=== PATIENT | male | born 1980 | race Caucasian/White ===

== ENCOUNTER 2017-08-05 05:21 | Emergency (ER) | payer SELFPAY ==
[2017-08-05] MEDS ORDERED: ONDANSETRON HCL INJ/PF 4 MG/2 ML SDV IV ONE (05:29)
[2017-08-05] MEDS ORDERED: MORPHINE SULFATE 10 MG/ML INJ IV PRN (05:29)
[2017-08-05] MEDS ORDERED: KETOROLAC TROMETHAMINE INJ/PF 30 MG/1 ML SDV IV ONE ×2 (05:29→05:41)
[2017-08-05] MEDS ORDERED: NORMAL SALINE 1000 ML 1,000 ML IV ONE (05:41)
--- NOTE | 2017-08-05 05:42 | ER Document Report ---
ED Medical Screen (RME) - General Chief Complaint: Possible Kidney Stone Stated Complaint: POSSIBLE KIDNEY STONES Notes: 37-year-old male, chief complaint of worsening right flank pain radiating around to his abdomen, states he has been vomiting, symptoms started 3 days ago but are worsening. Has a history of kidney stones, had one surgically removed in the past. Denies fevers. TRAVEL OUTSIDE OF THE [place] IN LAST 30 DAYS: No - Related Data Allergies/Adverse Reactions: oxycodone HCl [From OxyContin] Allergy (Verified 05/05/13 06:41) Past Medical History Renal/ Medical History: Reports: Hx Kidney Stones. Denies: Hx Peritoneal Dialysis Past Surgical History: Reports: Hx Orthopedic Surgery - right knee repair - Immunizations Hx Diphtheria, Pertussis, Tetanus Vaccination: Yes Physical Exam - Vital signs Vitals: Temp Pulse Resp BP Pulse Ox 97.5 F 90 24 H 130/113 H 99 08/05/17 05:26 08/05/17 05:26 08/05/17 05:26 08/05/17 05:26 08/05/17 05:26 - General General appearance: Anxious In distress: Moderate - Abdominal Inspection: Normal Tenderness: Nontender Course - Vital Signs Vital signs: Temp Pulse Resp BP Pulse Ox 97.5 F 90 24 H 130/113 H 99 08/05/17 05:26 08/05/17 05:26 08/05/17 05:26 08/05/17 05:26 08/05/17 05:26
[2017-08-05] MEDS ORDERED: MORPHINE SULFATE 10 MG/ML INJ IV ONE (06:01)
[2017-08-05 06:04] LABS: ABSOLUTE BASOPHILS # (AUTO) 0.1 10^3/uL (0.0-0.2); ABSOLUTE EOSINOPHILS # (AUTO) 0.2 10^3/uL (0.0-0.6); ABSOLUTE LYMPHOCYTES (AUTO) 4.1 10^3/uL (0.5-4.7); ABSOLUTE NEUT (AUTO) 6.5 10^3/uL (1.7-8.2); EOSINOPHILS % (AUTO) 1.5 % (0-6); HEMOGLOBIN 16.9 g/dL (13.5-17.0); HGB HCT DIFFERENCE 1.7; LYMPHOCYTES % (AUTO) 34.3 % (13-45); MEAN CORPUSCULAR HEMOGLOBIN 32.2 pg (27.0-33.4); MEAN CORPUSCULAR HGB CONC 34.6 g/dL (32.0-36.0); MEAN CORPUSCULAR VOLUME 93 fl (80-97); MONOCYTES % (AUTO) 8.3 % (3-13); RED BLOOD COUNT 5.25 10^6/uL (4.35-5.55); RED CELL DISTRIBUTION WIDTH 13.2 % (11.5-14.0); SEGMENTED NEUTROPHILS % (AUTO) 54.9 % (42-78); WHITE BLOOD COUNT 11.9 10^3/uL (4.0-10.5)
--- NOTE | 2017-08-05 06:19 | RADIOLOGY REPORT (SQ) ---
EXAM DESCRIPTION: CT LTD RENAL STONE PROTOCOL ON COMPLETED DATE/TIME: 08/05/2017 6:01 am REASON FOR STUDY: right flank pain, vomiting COMPARISON: None. TECHNIQUE: CT scan of the abdomen and pelvis performed without intravenous or oral contrast. Images reviewed with lung, soft tissue, and bone windows. Reconstructed coronal and sagittal MPR images revi ewed. All images stored on PACS. All CT scanners at this facility use dose modulation, iterative reconstruction, and/or weight based d osing when appropriate to reduce radiation dose to as low as reasonably achievable (ALARA). [facility]: Dose Right [facility]: CareDose [facility]: Dose Right [facility]: Teradose 4D [facility]: [employer] RADIATION DOSE: Up-to-date CT equipment and radiation dose reduction techniques were employed. CTDIv ol: 19.2 mGy. DLP: 1222 mGy-cm.mGy. LIMITATIONS: None. FINDINGS: LOWER CHEST: Subsegmental atelectasis at the lingula. 5 mm pleural-based nodule at the ri ght middle lobe (image 3/115). No pleural effusion. NON-CONTRASTED LIVER, SPLEEN, ADRENALS: Evaluation limited by lack of IV contrast. No identified sign ificant masses. PANCREAS: No peripancreatic inflammatory changes. GALLBLADDER: No identified stones by CT criteria. No inflammatory changes to suggest cholecystitis. RIGHT KIDNEY AND URETER: No significant calcifications. No hydronephrosis or hydroureter. LEFT KIDNEY AND URETER: Nonobstructing 6 mm (431 Hounsfield units) calculus at the superior pole of t he left kidney. No hydronephrosis or hydroureter. AORTA AND RETROPERITONEUM: No abdominal aortic aneurysm. No retroperitoneal masses or adenopathy. BOWEL AND PERITONEAL CAVITY: No dilated bowel loops or inflammatory changes. No free fluid. APPENDIX: Normal. PELVIS, BLADDER, AND ABDOMINAL WALL:The urinary bladder is decompressed. No pelvic mass. No free fl uid. Small fat containing umbilical hernia. BONES: Degenerative disc disease at L4-L5 with moderate right-sided neuroforaminal stenosis. IMPRESSION: Nonobstructing left nephrolithiasis. No hydronephrosis. No acute findings in the abdom en or pelvis on unenhanced CT. Degenerative disc disease at L4-L5 with moderate right-sided neuroforaminal stenosis. 5 mm nodule in the right middle lobe. Followup CT thorax as per patient's risk factors. COMMENT: FLEISCHNER CRITERIA FOR FOLLOW-UP OF PULMONARY NODULES Incidentally detected new nodules in persons 35 or older. HIGH RISK: History of smoking or other known risk factors. <6mm single solid nodule: LOW RISK: no routine followup. HIGH RISK: optional CT 12 mo. Quality ID # [id number]: Final reports with documentation of one or more dose reduction techniques (e.g., Au tomated exposure control, adjustment of the mA and/or kV according to patient size, use of iterative reconstruction technique) TECHNICAL DOCUMENTATION: JOB ID: [id number] 2010 [employer]- All Rights Reserved
[2017-08-05] MEDS ORDERED: PROMETHAZINE HCL INJ 25 MG/1 ML VIAL IV ONE (06:20)
[2017-08-05] MEDS ORDERED: HYDROMORPHONE HCL INJ/PF 2 MG/ML AMPULE IV ONE (06:20)
[2017-08-05 06:21] LABS: ALANINE AMINOTRANSFERASE 53 U/L (21-72); ALBUMIN 4.5 g/dL (3.5-5.0); ALKALINE PHOSPHATASE 76 U/L (38-126); ANION GAP 14 (5-19); ASPARTATE AMINO TRANSFERASE 33 U/L (17-59); BILIRUBIN,DIRECT 0.4 mg/dL (0.0-0.4); BILIRUBIN,TOTAL 0.6 mg/dL (0.2-1.3); BLOOD UREA NITROGEN 18 mg/dL (7-20); CALCIUM 9.9 mg/dL (8.4-10.2); CARBON DIOXIDE 25 mmol/L (22-30); CHLORIDE 108 mmol/L (98-107); CREATININE RESULT 1.14 mg/dL (0.52-1.25); GLUCOSE 116 mg/dL (75-110); POTASSIUM 5.1 mmol/L (3.6-5.0); SODIUM 146.5 mmol/L (137-145); TOTAL PROTEIN 7.6 g/dL (6.3-8.2)
--- NOTE | 2017-08-05 06:49 | ER Document Report ---
ED General - General Chief Complaint: Possible Kidney Stone Stated Complaint: POSSIBLE KIDNEY STONES Time Seen by Provider: 08/05/17 05:42 Mode of Arrival: Ambulatory Information source: Patient Notes: 37-year-old male with 3 previous kidney stones presents with complaints of right flank pain. Patient denies any fevers or chills. Patient admits to nausea vomiting patient states this feels like his previous kidney stone started 2-3 days ago TRAVEL OUTSIDE OF THE [place] IN LAST 30 DAYS: No - HPI Onset: Other Onset/Duration: Persistent Quality of pain: Sharp Severity: Moderate Pain Level: 3 Associated symptoms: Nausea, Vomiting, Other Exacerbated by: Denies Relieved by: Denies Similar symptoms previously: Yes Recently seen / treated by doctor: Yes - Related Data Allergies/Adverse Reactions: oxycodone HCl [From OxyContin] Allergy (Verified 05/05/13 06:41) Past Medical History - Social History Smoking Status: Current Every Day Smoker Cigarette use (# per day): Yes Chew tobacco use (# tins/day): No Smoking Education Provided: No Family History: Reviewed & Not Pertinent Patient has suicidal ideation: No Patient has homicidal ideation: No Renal/ Medical History: Reports: Hx Kidney Stones. Denies: Hx Peritoneal Dialysis Past Surgical History: Reports: Hx Orthopedic Surgery - right knee repair - Immunizations Hx Diphtheria, Pertussis, Tetanus Vaccination: Yes Review of Systems - Review of Systems Notes: REVIEW OF SYSTEMS: CONSTITUTIONAL : Denies fever, chills, or sweats. Denies recent illness. EENT: Denies eye, ear, throat, or mouth pain or symptoms. Denies nasal or sinus congestion or discharge. Denies throat, tongue, or mouth swelling or difficulty swallowing. CARDIOVASCULAR: Denies chest pain. Denies palpitations or racing or irregular heart beat. Denies ankle edema. RESPIRATORY: Denies cough, cold, or chest congestion. Denies shortness of breath, difficulty breathing, or wheezing. GASTROINTESTINAL: Admits to flank pain nausea vomiting GENITOURINARY: Admits to difficulty urinating MUSCULOSKELETAL: Denies back or neck pain or stiffness. Denies joint pain or swelling. SKIN: Denies rash, lesions or sores. HEMATOLOGIC : Denies easy bruising or bleeding. LYMPHATIC: Denies swollen, enlarged glands. NEUROLOGICAL: Denies confusion or altered mental status. Denies passing out or loss of consciousness. Denies dizziness or lightheadedness. Denies headache. Denies weakness or paralysis or loss of use of either side. Denies problems with gait or speech. Denies sensory loss, numbness, or tingling. Denies seizures. PSYCHIATRIC: Denies anxiety or stress. Denies depression, suicidal ideation, or homicidal ideation. ALL OTHER SYSTEMS REVIEWED AND NEGATIVE. Dictation was performed using [employer] voice recognition software PHYSICAL EXAMINATION: GENERAL: Well-appearing, well-nourished and in moderate acute distress HEAD: Atraumatic, normocephalic. EYES: Pupils equal round and reactive to light, extraocular movements intact, sclera anicteric, conjunctiva are normal. ENT: Nares patent, oropharynx clear without exudates. Moist mucous membranes. NECK: Normal range of motion, supple without lymphadenopathy LUNGS: Breath sounds clear to auscultation bilaterally and equal. No wheezes rales or rhonchi. HEART: Regular rate and rhythm without murmurs ABDOMEN: Soft, right CVA tenderness no abdominal guarding rebound tenderness. Musculoskeletal: Normal range of motion, no pitting or edema. No cyanosis. NEUROLOGICAL: Cranial nerves grossly intact. Normal speech, normal gait. Normal sensory, motor exams PSYCH: Normal mood, normal affect. SKIN: Warm, Dry, normal turgor, no rashes or lesions noted. Physical Exam - Vital signs Vitals: Temp Pulse Resp BP Pulse Ox 97.5 F 90 24 H 130/113 H 99 08/05/17 05:26 08/05/17 05:26 08/05/17 05:26 08/05/17 05:26 08/05/17 05:26 Course - Re-evaluation Re-evalutation: 08/05/17 06:49 Patient was initially given Toradol Zofran which did not improve his vomiting or nausea, he was then given Dilaudid and Phenergan as much more comfortable, urinalysis CT are pending 08/05/17 07:09 ct noted a lung nodule which was reported to the patient, otherwise well appearing, no infection or blood in the urine. Pt will be dc home with close follow up especially regarding the nodule. After performing a Medical Screening Examination, I estimate there is LOW risk for ACUTE APPENDICITIS, BOWEL OBSTRUCTION, ACUTE CHOLECYSTITIS, PERFORATED DIVERTICULITIS, INCARCERATED HERNIA, PANCREATITIS, TESTICULAR TORSION or PERFORATED ULCER, thus I consider the discharge disposition reasonable. Also, there is no evidence or peritonitis, sepsis, or toxicity. I have reevaluated this patient multiple times and no significant life threatening changes are noted. The patient and I have discussed the diagnosis and risks, and we agree with discharging home with close follow-up with the understanding that symptoms and presentations can change. We also discussed returning to the Emergency Department immediately if new or worsening symptoms occur. We have discussed the symptoms which are most concerning (e.g., bloody stool, fever, changing or worsening pain, intractable vomiting - standard verbal up date) that necessitate immediate return. - Vital Signs Vital signs: Temp Pulse Resp BP Pulse Ox 97.5 F 70 18 131/76 H 98 08/05/17 05:26 08/05/17 06:51 08/05/17 06:51 08/05/17 06:51 08/05/17 06:51 - Laboratory Result Diagrams: 08/05/17 05:46 08/05/17 05:46 Laboratory results interpreted by me: 08/05/17 08/05/17 05:46 05:46 WBC 11.9 H Sodium 146.5 H Potassium 5.1 H Chloride 108 H Glucose 116 H - Diagnostic Test Radiology reviewed: Image reviewed, Reports reviewed Discharge - Discharge Clinical Impression: Flank pain, Lung nodule < 6cm on CT Condition: Stable Disposition: HOME, SELF-CARE Instructions: Abdominal Pain ([facility]) Additional Instructions: You must follow up with your pcp regarding the finding of the CT Follow up with your physician tomorrow for further care or return to the ED IMMEDIATELY if symptoms worsen or new concerns occur. If you cannot afford to follow up with your primary care physician a list of low cost clinics have been provided at the end of your discharge papers as well. Prescriptions: Promethazine HCl [Phenergan 25 mg Tablet] 25 - 50 mg PO Q4HP PRN #12 tablet PRN Reason: Hydrocodone Bit/Acetaminophen [Hydrocodon-Acetaminophen 5-325] 1 each PO Q6 #14 tablet
[2017-08-05 06:50] LABS: APPEARANCE,URINE CLEAR; BILIRUBIN,URINE NEGATIVE (NEGATIVE); GLUCOSE, URINE NEGATIVE (NEGATIVE); KETONES,URINE NEGATIVE (NEGATIVE); LEUKOCYTE ESTERASE,URINE NEGATIVE (NEGATIVE); NITRITE,URINE NEGATIVE (NEGATIVE); PROTEIN,URINE NEGATIVE (NEGATIVE); URINE SPECIFIC GRAVITY 1.013; UROBILINOGEN,URINE NEGATIVE mg/dL (<2.0)
[2017-08-05 06:51] VITALS: BP 131/76
== END 2017-08-05 07:23 | disposition home or self-care (01) ==
LOC: ER 05:21
DX: R10.9 Unspecified abdominal pain (principal); R91.1 Solitary pulmonary nodule; R11.2 Nausea with vomiting, unspecified; F17.210 Nicotine dependence, cigarettes, uncomplicated; Z87.442 Personal history of urinary calculi; Z88.5 Allergy status to narcotic agent
CPT/HCPCS: 99284; 96361; 51701; 96374; 96375; 36415; 85025; 80053; 81001; 76380; J1885; J2270; J1170; J2550; J2405; J7030

== ENCOUNTER 2017-10-05 12:20 | Emergency (ER) | payer SELFPAY ==
[2017-10-05] MEDS ORDERED: KETOROLAC TROMETHAMINE INJ/PF 30 MG/1 ML SDV IV ONE (12:39)
--- NOTE | 2017-10-05 12:39 | ER Document Report ---
ED Medical Screen (RME) - General Chief Complaint: Wound Infection Stated Complaint: ARM PAIN Time Seen by Provider: 10/05/17 12:38 Notes: Patient has swollen tender erythematous left arm from an infected tattoo. TRAVEL OUTSIDE OF THE [place] IN LAST 30 DAYS: No - Related Data Allergies/Adverse Reactions: oxycodone HCl [From OxyContin] Allergy (Verified 10/05/17 12:20) Home Medications: Current Home Medications No Home Medications 10/05/17 [History] Past Medical History - Social History Chew tobacco use (# tins/day): No Frequency of alcohol use: Rare Drug Abuse: None Renal/ Medical History: Reports: Hx Kidney Stones. Denies: Hx Peritoneal Dialysis Past Surgical History: Reports: Hx Orthopedic Surgery - right knee repair - Immunizations Hx Diphtheria, Pertussis, Tetanus Vaccination: Yes Physical Exam - Vital signs Vitals: Temp Pulse Resp BP Pulse Ox 97.5 F 66 16 152/96 H 99 10/05/17 12:25 10/05/17 12:25 10/05/17 12:25 10/05/17 12:25 10/05/17 12:25 Course - Vital Signs Vital signs: Temp Pulse Resp BP Pulse Ox 97.5 F 66 16 152/96 H 99 10/05/17 12:25 10/05/17 12:25 10/05/17 12:25 10/05/17 12:25 10/05/17 12:25
[2017-10-05 13:14] LABS: ABSOLUTE BASOPHILS # (AUTO) 0.1 10^3/uL (0.0-0.2); ABSOLUTE EOSINOPHILS # (AUTO) 0.1 10^3/uL (0.0-0.6); ABSOLUTE LYMPHOCYTES (AUTO) 3.6 10^3/uL (0.5-4.7); ABSOLUTE MONOCYTES (AUTO) 0.7 10^3/uL (0.1-1.4); ABSOLUTE NEUT (AUTO) 6.5 10^3/uL (1.7-8.2); BASOPHILS % (AUTO) 0.9 % (0-2); EOSINOPHILS % (AUTO) 1.1 % (0-6); HEMATOCRIT 49.7 % (37.9-51.0); HEMOGLOBIN 17.2 g/dL (13.5-17.0); HGB HCT DIFFERENCE 1.9; LYMPHOCYTES % (AUTO) 32.5 % (13-45); MEAN CORPUSCULAR HEMOGLOBIN 32.2 pg (27.0-33.4); MEAN CORPUSCULAR HGB CONC 34.6 g/dL (32.0-36.0); MEAN CORPUSCULAR VOLUME 93 fl (80-97); MONOCYTES % (AUTO) 6.8 % (3-13); RED BLOOD COUNT 5.34 10^6/uL (4.35-5.55); RED CELL DISTRIBUTION WIDTH 13.2 % (11.5-14.0); SEGMENTED NEUTROPHILS % (AUTO) 58.7 % (42-78)
[2017-10-05] MEDS ORDERED: CLINDAMYCIN 300 MG/D5W RTU 300 MG/50 ML RTUPB IV ONE (13:29)
[2017-10-05] MEDS ORDERED: HYDROMORPHONE HCL INJ/PF 2 MG/ML AMPULE IV ONE (13:29)
--- NOTE | 2017-10-05 13:31 | ER Document Report ---
ED General - General Chief Complaint: Wound Infection Stated Complaint: ARM PAIN Time Seen by Provider: 10/05/17 12:38 Mode of Arrival: Ambulatory Information source: Patient Notes: 37 yr old male presents with complaints of left forearm infection of tattoo of 1 week duration. pt notes tetanus is up to date, has no concerns of hep B, pt dneies any fevers, admits to pain of the tattoo TRAVEL OUTSIDE OF THE [place] IN LAST 30 DAYS: No - HPI Onset: Last week Onset/Duration: Worse Quality of pain: Burning, Sharp Severity: Mild Pain Level: 2 Associated symptoms: Other Exacerbated by: Denies Relieved by: Denies Similar symptoms previously: No Recently seen / treated by doctor: No - Related Data Allergies/Adverse Reactions: oxycodone HCl [From OxyContin] Allergy (Verified 10/05/17 12:20) Past Medical History - Social History Smoking Status: Current Every Day Smoker Cigarette use (# per day): Yes Chew tobacco use (# tins/day): No Smoking Education Provided: No Frequency of alcohol use: Rare Drug Abuse: None Family History: Reviewed & Not Pertinent Patient has suicidal ideation: No Patient has homicidal ideation: No Renal/ Medical History: Reports: Hx Kidney Stones. Denies: Hx Peritoneal Dialysis Past Surgical History: Reports: Hx Orthopedic Surgery - right knee repair - Immunizations Hx Diphtheria, Pertussis, Tetanus Vaccination: Yes Review of Systems - Review of Systems Notes: REVIEW OF SYSTEMS: CONSTITUTIONAL : Denies fever, chills, or sweats. Denies recent illness. EENT: Denies eye, ear, throat, or mouth pain or symptoms. Denies nasal or sinus congestion or discharge. Denies throat, tongue, or mouth swelling or difficulty swallowing. CARDIOVASCULAR: Denies chest pain. Denies palpitations or racing or irregular heart beat. Denies ankle edema. RESPIRATORY: Denies cough, cold, or chest congestion. Denies shortness of breath, difficulty breathing, or wheezing. GASTROINTESTINAL: Denies abdominal pain or distention. Denies nausea, vomiting , or diarrhea. Denies blood in vomitus, stools, or per rectum. Denies black, tarry stools. Denies constipation. GENITOURINARY: Denies difficulty urinating, painful urination, burning, frequency, blood in urine, or discharge. MUSCULOSKELETAL: Denies back or neck pain or stiffness. Denies joint pain or swelling. SKIN: Admits to rash of left forearm HEMATOLOGIC : Denies easy bruising or bleeding. LYMPHATIC: Denies swollen, enlarged glands. NEUROLOGICAL: Denies confusion or altered mental status. Denies passing out or loss of consciousness. Denies dizziness or lightheadedness. Denies headache. Denies weakness or paralysis or loss of use of either side. Denies problems with gait or speech. Denies sensory loss, numbness, or tingling. Denies seizures. PSYCHIATRIC: Denies anxiety or stress. Denies depression, suicidal ideation, or homicidal ideation. ALL OTHER SYSTEMS REVIEWED AND NEGATIVE. Dictation was performed using [employer] voice recognition software PHYSICAL EXAMINATION: GENERAL: Well-appearing, well-nourished and in no acute distress. HEAD: Atraumatic, normocephalic. EYES: Pupils equal round and reactive to light, extraocular movements intact, sclera anicteric, conjunctiva are normal. ENT: Nares patent, oropharynx clear without exudates. Moist mucous membranes. NECK: Normal range of motion, supple without lymphadenopathy LUNGS: Breath sounds clear to auscultation bilaterally and equal. No wheezes rales or rhonchi. HEART: Regular rate and rhythm without murmurs ABDOMEN: Soft, nontender, nondistended abdomen. No guarding, no rebound. No masses appreciated. Musculoskeletal: Normal range of motion, no pitting or edema. No cyanosis. NEUROLOGICAL: Cranial nerves grossly intact. Normal speech, normal gait. Normal sensory, motor exams PSYCH: Normal mood, normal affect. SKIN: Cellulitic component of the left forearm with scarring in the shape of a female body Physical Exam - Vital signs Vitals: Temp Pulse Resp BP Pulse Ox 97.5 F 66 16 152/96 H 99 10/05/17 12:25 10/05/17 12:25 10/05/17 12:25 10/05/17 12:25 10/05/17 12:25 Course - Re-evaluation Re-evalutation: 10/05/17 17:08 Patient's tattoo is obviously infected, IV antibiotics have been started he is otherwise well-appearing in no distress afebrile white count is 11.0, he was given first dose of IV antibiotics here, and will be discharged home on oral antibiotics with very strict return precautions After performing a Medical Screening Examination, I estimate there is LOW risk for OPEN FRACTURE, COMPARTMENT SYNDROME, TENDON RUPTURE, ACUTE NEUROVASCULAR INJURY, or RETAINED FOREIGN BODY, thus I consider the discharge disposition reasonable. Also, there is no evidence or peritonitis, sepsis, or toxicity. I have reevaluated this patient multiple times and no significant life threatening changes are noted. The patient and I have discussed the diagnosis and risks, and we agree with discharging home with close follow-up with the understanding that symptoms and presentations can change. We also discussed returning to the Emergency Department immediately if new or worsening symptoms occur. We have discussed the symptoms which are most concerning (e.g., changing or worsening pain, fever, numbness, weakness, cool or painful digits) that necessitate immediate return. - Vital Signs Vital signs: Temp Pulse Resp BP Pulse Ox 97.8 F 57 L 20 127/87 H 96 10/05/17 14:49 10/05/17 14:49 10/05/17 14:49 10/05/17 14:49 10/05/17 14:49 - Laboratory Result Diagrams: 10/05/17 13:00 10/05/17 13:00 Laboratory results interpreted by me: 10/05/17 10/05/17 13:00 13:00 WBC 11.0 H Hgb 17.2 H Sodium 146.3 H Calcium 10.6 H Discharge - Discharge Clinical Impression: Infected tattoo Cellulitis Qualifiers: Site of cellulitis: extremity Site of cellulitis of extremity: upper extremity Laterality: left Qualified Code(s): L03.114 - Cellulitis of left upper limb Condition: Stable Disposition: HOME, SELF-CARE Instructions: Wound Infection ([facility]) Additional Instructions: Follow up with your physician tomorrow for further care or return to the ED IMMEDIATELY if symptoms worsen or new concerns occur. If you cannot afford to follow up with your primary care physician a list of low cost clinics have been provided at the end of your discharge papers as well. Prescriptions: Clindamycin HCl 300 mg PO Q6 #40 capsule Oxycodone HCl/Acetaminophen [Percocet 5-325 mg Tablet] 1 tab PO Q6 #15 tab
[2017-10-05 13:33] LABS: ALANINE AMINOTRANSFERASE 43 U/L (21-72); ALBUMIN 4.6 g/dL (3.5-5.0); ALKALINE PHOSPHATASE 97 U/L (38-126); ANION GAP 13 (5-19); ASPARTATE AMINO TRANSFERASE 23 U/L (17-59); BILIRUBIN,DIRECT 0.2 mg/dL (0.0-0.4); BILIRUBIN,TOTAL 0.4 mg/dL (0.2-1.3); BLOOD UREA NITROGEN 15 mg/dL (7-20); CALCIUM 10.6 mg/dL (8.4-10.2); CARBON DIOXIDE 27 mmol/L (22-30); CHLORIDE 106 mmol/L (98-107); CREATININE RESULT 1.24 mg/dL (0.52-1.25); GLUCOSE 88 mg/dL (75-110); POTASSIUM 4.5 mmol/L (3.6-5.0); SODIUM 146.3 mmol/L (137-145); TOTAL PROTEIN 7.8 g/dL (6.3-8.2)
[2017-10-05 15:04] VITALS: BP 127/87
== END 2017-10-05 14:55 | disposition home or self-care (01) ==
LOC: ER 12:20
DX: L03.114 Cellulitis of left upper limb (principal); F17.210 Nicotine dependence, cigarettes, uncomplicated; Z88.5 Allergy status to narcotic agent
CPT/HCPCS: 99283; 96375; 96365; 36415; 87040; 85025; 80053; J3490; J1885; J1170

== ENCOUNTER 2018-02-25 20:00 | Inpatient (IN) | payer SELFPAY ==
[2018-02-25] MEDS ORDERED: FENTANYL CITRATE INJ/PF 100 MCG/2 ML AMPUL IV ONE (20:19)
[2018-02-25] MEDS ORDERED: ONDANSETRON HCL INJ/PF 4 MG/2 ML SDV IV ONE (20:19)
[2018-02-25] MEDS ORDERED: RINGERS SOLUTION,LACTATED 1,000 ML IV ONE ×2 (20:20→23:37)
--- NOTE | 2018-02-25 20:20 | ER Document Report ---
ED Medical Screen (RME) - General Chief Complaint: Nausea/Vomiting/Diarrhea Stated Complaint: VOMITING Time Seen by Provider: 02/25/18 20:16 Notes: RAPID MEDICAL EVALUATION DISCLOSURE I have seen this patient as part of a Rapid Medical Evaluation and, if applicable, placed any initially appropriate orders. The patient will be seen and fully evaluated, including a full history and physical exam, by a provider ( in Main ED or Fast Track) when a room becomes available. 37-year-old male here with complaints of nausea vomiting diarrhea abdominal pain and lightheadedness. Symptoms started this morning with nausea diarrhea followed by left lower quadrant abdominal pain lightheadedness and vomiting. He reports the pain was excruciating earlier in the day but has down some though is still a nagging pain. Has been unable to keep anything down. Try taking Tylenol but was unable to keep it down. Denies taking any regularly scheduled medications or pesticide exposure. No prior history of colitis diverticulitis pancreatitis. EXAM Clear to auscultation bilaterally Tachycardic Moderate left lower greater than upper quadrant tenderness Mild epigastric tenderness NOTE PO Tylenol not given to maintain n.p.o. status Patient refusing Tylenol suppository TRAVEL OUTSIDE OF THE [place] IN LAST 30 DAYS: No - Related Data Allergies/Adverse Reactions: oxycodone HCl [From OxyContin] Allergy (Verified 02/25/18 20:01) Past Medical History - Social History Chew tobacco use (# tins/day): No Frequency of alcohol use: None Drug Abuse: None Renal/ Medical History: Reports: Hx Kidney Stones. Denies: Hx Peritoneal Dialysis Past Surgical History: Reports: Hx Orthopedic Surgery - Rt knee, Rt ankle, Rt wrist - Immunizations Hx Diphtheria, Pertussis, Tetanus Vaccination: Yes Physical Exam - Vital signs Vitals: Temp Pulse Resp BP Pulse Ox 102.4 F H 113 H 20 135/81 H 96 02/25/18 20:05 02/25/18 20:05 02/25/18 20:05 02/25/18 20:05 02/25/18 20:05 Course - Vital Signs Vital signs: Temp Pulse Resp BP Pulse Ox 102.4 F H 113 H 20 135/81 H 96 02/25/18 20:05 02/25/18 20:05 02/25/18 20:05 02/25/18 20:05 02/25/18 20:05
[2018-02-25] MEDS ORDERED: KETOROLAC TROMETHAMINE INJ/PF 30 MG/1 ML SDV IV ONE (21:01)
[2018-02-25] MEDS ORDERED: ACETAMINOPHEN 325 MG TABLET PO ONE (21:01)
--- NOTE | 2018-02-25 21:04 | ER Document Report ---
ED General - General Chief Complaint: Nausea/Vomiting/Diarrhea Stated Complaint: VOMITING Time Seen by Provider: 02/25/18 20:16 Notes: Patient is a 37-year-old male with a past medical history of morbid obesity who presents with complaints of abdominal pain, nausea, vomiting and diarrhea. Patient reports that the symptoms started earlier this morning have become progressively worse since onset. He notes a constant, throbbing, burning pain to the left side of his abdomen most focal to the left lower abdomen. He states touching the area or moving worsens the pain he has not training to improve the pain. Past. He has not seen his general doctor regarding today's concerns. Has had a fever at home. Known sick contacts. He has not been able to tolerate oral intake since onset of his symptoms. He has no prior history of abdominal surgeries. TRAVEL OUTSIDE OF THE [place] IN LAST 30 DAYS: No - Related Data Allergies/Adverse Reactions: oxycodone HCl [From OxyContin] Allergy (Verified 02/25/18 20:01) Past Medical History - General Information source: Patient - Social History Smoking Status: Current Every Day Smoker Chew tobacco use (# tins/day): No Frequency of alcohol use: None Drug Abuse: None Lives with: Spouse/Significant other Family History: Reviewed & Not Pertinent Patient has suicidal ideation: No Patient has homicidal ideation: No Renal/ Medical History: Reports: Hx Kidney Stones. Denies: Hx Peritoneal Dialysis Past Surgical History: Reports: Hx Orthopedic Surgery - Rt knee, Rt ankle, Rt wrist - Immunizations Hx Diphtheria, Pertussis, Tetanus Vaccination: Yes Review of Systems - Review of Systems Notes: Constitutional: Positive for fever. HENT: Negative for sore throat. Eyes: Negative for visual changes. Cardiovascular: Negative for chest pain. Respiratory: Negative for shortness of breath. Gastrointestinal: Positive for abdominal pain, vomiting and diarrhea Genitourinary: Negative for dysuria. Musculoskeletal: Negative for back pain. Skin: Negative for rash. Neurological: Negative for headaches, weakness or numbness. 10 point ROS negative except as marked above and in HPI. Physical Exam - Vital signs Vitals: Temp Pulse Resp BP Pulse Ox 102.4 F H 113 H 20 135/81 H 96 02/25/18 20:05 02/25/18 20:05 02/25/18 20:05 02/25/18 20:05 02/25/18 20:05 Interpretation: Tachycardic, Febrile Notes: PHYSICAL EXAMINATION: GENERAL: Appears uncomfortable and somewhat unwell but in no acute distress HEAD: Atraumatic, normocephalic. EYES: Pupils equal round and reactive to light, extraocular movements intact, sclera anicteric, conjunctiva are normal. ENT: nares patent, oropharynx clear without exudates. Moderately dry mucous membranes. NECK: Normal range of motion, supple without lymphadenopathy LUNGS: Breath sounds clear to auscultation bilaterally and equal. No wheezes rales or rhonchi. HEART: Regular tachycardia without murmurs ABDOMEN: Soft, obese abdomen, diffuse tenderness to the left upper, left middle and left lower abdominal quadrants with voluntary guarding but no rebound tenderness. Nontender, normoactive bowel sounds. EXTREMITIES: Normal range of motion, no pitting or edema. No cyanosis. NEUROLOGICAL: No focal neurological deficits. Moves all extremities spontaneously and on command. PSYCH: Moderately anxious SKIN: Warm, Dry, normal turgor, no rashes or lesions noted. Course - Re-evaluation Re-evalutation: 02/25/18 21:03 Patient presents with diarrhea, vomiting and generalized epigastric, left upper quadrant left lower quadrant abdominal tenderness with voluntary guarding. Patient is febrile, tachycardic and somewhat ill in appearance. Primary concern would be an acute diverticulitis, possible recanalized colitis, less likely a necrotizing pancreatitis or pyelonephritis. Will obtain labs, provide IV fluids, antipyretics, antiemetics, and obtain CT imaging abdomen pelvis to further clarify and then reassess the patient. 02/25/18 22:54 Patient continues to have left mid and lower abdominal tenderness although his heart rate has improved as he has defervesced. His CT scan of the abdomen and pelvis is unremarkable without any acute findings. Awaiting urinalysis. However, given that the patient continues to have significant tenderness on palpation of his abdomen with associated fever and a marked leukocytosis I do not believe the patient can be discharged today. If the urinalysis is normal I will discuss this case with the hospitalist and request hospitalization for observation. 02/25/18 23:40 Urinalysis unremarkable. Patient is yet to have diarrhea but we have requested C. difficile, stool culture and assay testing. Will discuss with hospitalist for admission. Will empirically begin antibiotic coverage of ciprofloxacin and Flagyl. - Vital Signs Vital signs: Temp Pulse Resp BP Pulse Ox 100.9 F H 113 H 19 126/81 H 95 02/25/18 21:58 02/25/18 20:05 02/26/18 00:01 02/26/18 00:01 02/26/18 00:01 - Laboratory Result Diagrams: 02/25/18 20:40 02/25/18 20:40 Laboratory results interpreted by me: 02/25/18 02/25/18 20:40 20:40 WBC 22.7 H RBC 5.62 H Hgb 17.8 H Hct 52.2 H Seg Neuts % (Manual) 89 H Band Neutrophils % 1 L Lymphocytes % (Manual) 6 L Abs Neuts (Manual) 20.4 H Glucose 132 H Direct Bilirubin 0.5 H - Diagnostic Test Radiology reviewed: Reports reviewed Discharge - Discharge Clinical Impression: Left lower quadrant abdominal pain of unknown etiology, Vomiting and diarrhea Sepsis Qualifiers: Sepsis type: sepsis due to unspecified organism Qualified Code(s): A41.9 - Sepsis, unspecified organism Condition: Fair Disposition: ADMITTED INPATIENT Admitting Provider: Hospitalist Unit Admitted: Telemetry
[2018-02-25 21:11] LABS: HEMATOCRIT 52.2 % (37.9-51.0); HEMOGLOBIN 17.8 g/dL (13.5-17.0); MEAN CORPUSCULAR HEMOGLOBIN 31.8 pg (27.0-33.4); MEAN CORPUSCULAR HGB CONC 34.2 g/dL (32.0-36.0); MEAN CORPUSCULAR VOLUME 93 fl (80-97); PLATELET COUNT 239 10^3/uL (150-450); RED BLOOD COUNT 5.62 10^6/uL (4.35-5.55); RED CELL DISTRIBUTION WIDTH 13.4 % (11.5-14.0); WHITE BLOOD COUNT 22.7 10^3/uL (4.0-10.5)
[2018-02-25 21:30] LABS: ABSOLUTE LYMPHOCYTES# (MANUAL) 1.4 10^3/uL (0.5-4.7); ABSOLUTE MONOCYTES # (MANUAL) 0.9 10^3/uL (0.1-1.4); ABSOLUTE NEUTROPHILS# (MANUAL) 20.4 10^3/uL (1.7-8.2); BAND NEUTROPHILS % (MANUAL) 1 % (3-5); BASOPHILS % (MANUAL) 0 % (0-2); EOSINOPHILS % (MANUAL) 0 % (0-6); LYMPHOCYTES % (MANUAL) 6 % (13-45); MONOCYTES % (MANUAL) 4 % (3-13); SEGMENTED NEUTROPHILS % (MAN) 89 % (42-78); TOTAL CELLS COUNTED 100
[2018-02-25 21:32] LABS: PLATELET COMMENT ADEQUATE; RBC MORPHOLOGY COMMENT NORMO-CYTIC/CHROMIC; TOXIC GRANULATION SLIGHT
[2018-02-25 21:40] LABS: ALANINE AMINOTRANSFERASE 59 U/L (21-72); ALBUMIN 4.7 g/dL (3.5-5.0); ALKALINE PHOSPHATASE 80 U/L (38-126); ANION GAP 18 (5-19); ASPARTATE AMINO TRANSFERASE 28 U/L (17-59); BILIRUBIN,DIRECT 0.5 mg/dL (0.0-0.4); BILIRUBIN,TOTAL 0.7 mg/dL (0.2-1.3); BLOOD UREA NITROGEN 16 mg/dL (7-20); CALCIUM 9.8 mg/dL (8.4-10.2); CARBON DIOXIDE 24 mmol/L (22-30); CHLORIDE 101 mmol/L (98-107); GLUCOSE 132 mg/dL (75-110); LIPASE 193.8 U/L (23-300); POTASSIUM 4.8 mmol/L (3.6-5.0); SODIUM 143.4 mmol/L (137-145)
--- NOTE | 2018-02-25 22:44 | RADIOLOGY REPORT (SQ) ---
EXAM DESCRIPTION: CT ABD/PELVIS WITH IV ONLY COMPLETED DATE/TIME: 02/25/2018 10:11 pm REASON FOR STUDY: LLQ/LUQ pain fever n/v/d COMPARISON: Noncontrast CT abdomen and pelvis 08/05/2017 TECHNIQUE: CT scan of the abdomen and pelvis performed using helical scanning technique with dynamic intravenous contrast injection. No oral contrast. Images reviewed with lung, soft tissue, and bone windows. Reconstructed coronal and sagittal MPR images reviewed. Delayed images for evaluation of the urinary system also acquired. All images stored on PACS. All CT scanners at this facility use dose modulation, iterative reconstruction, and/or weight based d osing when appropriate to reduce radiation dose to as low as reasonably achievable (ALARA). [facility]: Dose Right [facility]: CareDose [facility]: Dose Right [facility]: Teradose 4D [facility]: [employer] CONTRAST TYPE AND DOSE: 100 mL Isovue 370- low osmolar. RENAL FUNCTION: Creatinine 1.22 RADIATION DOSE: . LIMITATIONS: None. FINDINGS: LOWER CHEST: No significant interval change in the 5 mm pleural-based nodule at the right middle lobe (image 2/35). No consolidation or pleural effusion. LIVER: Diffuse decreased attenuation, most consistent with fatty infiltration. No masses. No dilated ducts. SPLEEN: Normal size. No focal lesions. PANCREAS: No significant calcifications. No adjacent inflammation or peripancreatic fluid collections . Pancreatic duct not dilated. GALLBLADDER: No identified stones by CT criteria. No inflammatory changes to suggest cholecystitis. ADRENAL GLANDS: No significant masses or asymmetry. RIGHT KIDNEY AND URETER: Subcentimeter hypodensity at the superior pole of the right kidney is too sm all to be adequately characterized. No significant calcifications. No hydronephrosis or hydrouret er. LEFT KIDNEY AND URETER: Subcentimeter hypodensity at the superior pole of the left kidney is too smal l to be adequately characterized. Nonobstructing 7 mm renal calculus (459 Hounsfield units). No h ydronephrosis or hydroureter. AORTA AND VESSELS: No abdominal aortic aneurysm. RETROPERITONEUM: No retroperitoneal adenopathy, hemorrhage or masses. BOWEL AND PERITONEAL CAVITY: No dilated bowel loops or inflammatory changes. No free fluid or free ai r. APPENDIX: Normal. PELVIS: No mass. No free fluid. The urinary bladder is partially distended. ABDOMINAL WALL: Small fat containing umbilical hernia. BONES: Degenerative disc disease with vacuum disc phenomenon at L4-L5. IMPRESSION: 1. No acute findings. 2. Nonobstructing left nephrolithiasis. 3. Fatty infiltration of the liver. 4. No significant interval change in the 5 mm pulmonary nodule at the right middle lobe. Followup CT thorax as per patient's risk factors. 5. Degenerative disc disease at L4-L5. COMMENT: FLEISCHNER CRITERIA FOR FOLLOW-UP OF PULMONARY NODULES Incidentally detected new nodules in persons 35 or older. HIGH RISK: History of smoking or other known risk factors. <6mm single solid nodule: LOW RISK: no routine followup. HIGH RISK: optional CT 12 mo. TECHNICAL DOCUMENTATION: JOB ID: [id number] MO-64 Quality ID # [id number]: Final reports with documentation of one or more dose reduction techniques (e.g., Au tomated exposure control, adjustment of the mA and/or kV according to patient size, use of iterative reconstruction technique) 2010 [employer]- All Rights Reserved Reading location - IP/workstation name: [email or web address]
[2018-02-25] MEDS: HYDROMORPHONE HCL INJ/PF 2 MG/ML AMPULE IV PRN (22:59)
[2018-02-25 23:20] LABS: APPEARANCE,URINE CLEAR; BILIRUBIN,URINE NEGATIVE (NEGATIVE); COLOR,URINE YELLOW; GLUCOSE, URINE NEGATIVE (NEGATIVE); KETONES,URINE NEGATIVE (NEGATIVE); LEUKOCYTE ESTERASE,URINE NEGATIVE (NEGATIVE); NITRITE,URINE NEGATIVE (NEGATIVE); PROTEIN,URINE NEGATIVE (NEGATIVE); URINE SPECIFIC GRAVITY 1.038; UROBILINOGEN,URINE NEGATIVE mg/dL (<2.0)
[2018-02-25] MEDS ORDERED: METRONIDAZOLE 500 MG/NS RTU 100 ML IV ONE (23:39)
[2018-02-25] MEDS ORDERED: CIPROFLOXACIN 400 MG/D5W RTU 400 MG/200 ML RTUPB IV SCH (23:45)
[2018-02-25] MEDS ORDERED: NORMAL SALINE 1000 ML 1,000 ML IV SCH (23:45)
[2018-02-25] MEDS ORDERED: MAG HYDROX/AL HYDROX/SIMETH SUSP 30 ML UDCUP PO PRN (23:50)
[2018-02-25] MEDS ORDERED: IPRATROPIUM/ALBUTEROL 0.5-2.5 MG/3 ML AMPUL NEB PRN (23:50)
[2018-02-26] MEDS ORDERED: CIPROFLOXACIN 400 MG/D5W RTU 400 MG/200 ML RTUPB IV ONE (01:00)
[2018-02-26] MEDS: HYDROMORPHONE HCL INJ/PF 2 MG/ML AMPULE IV PRN ×6 (02:14→21:28)
--- NOTE | 2018-02-26 03:56 | PDOC H&P ---
History of Present Illness Admission Date/PCP: 02/25/18 23:58 Patient complains of: Abdominal pain nausea vomiting History of Present Illness: ANNETTE GUERRERO is a 37 year old male with a history of morbid obesity who presents with 12 hours of abdominal pain nausea vomiting and diarrhea 1. Patient denies blood in vomit or diarrhea, no chest pain or shortness of breath. Subjective fever in the emergency room is found to have leukocytosis and left lower quadrant pain otherwise unremarkable workup. He is ordered empiric antibiotics, IV fluid, symptomatic management and referred to the hospitalist for admission. Patient is most comfortable lying flat no further episodes of emesis or diarrhea, he denies previous episode, suspect meals or recent antibiotics. Past Medical History Medical History: None Past Surgical History Past Surgical History: Reports: Orthopedic Surgery - Rt knee, Rt ankle, Rt wrist Social History Information Source: Patient Lives with: Spouse/Significant other Smoking Status: Never Smoker Frequency of Alcohol Use: None Hx Recreational Drug Use: No Drugs: None - Advance Directive Resuscitation Status: Full Code Family History Family History: DM, Hypertension Parental Family History Reviewed: Yes Children Family History Reviewed: Yes Sibling(s) Family History Reviewed.: Yes Medication/Allergy Home Medications: No Home Medications 02/25/18 Allergies/Adverse Reactions: oxycodone HCl [From OxyContin] Allergy (Verified 02/25/18 20:01) Review of Systems Constitutional: ABSENT: chills, fever(s), headache(s), weight gain, weight loss Eyes: ABSENT: visual disturbances Ears: ABSENT: hearing changes Cardiovascular: ABSENT: chest pain, dyspnea on exertion, edema, orthropnea, palpitations Respiratory: ABSENT: cough, hemoptysis Gastrointestinal: ABSENT: abdominal pain, constipation, diarrhea, hematemesis, hematochezia, nausea, vomiting Genitourinary: ABSENT: dysuria, hematuria Musculoskeletal: ABSENT: joint swelling Integumentary: ABSENT: rash, wounds Neurological: ABSENT: abnormal gait, abnormal speech, confusion, dizziness, focal weakness, syncope Psychiatric: ABSENT: anxiety, depression, homidical ideation, suicidal ideation Endocrine: ABSENT: cold intolerance, heat intolerance, polydipsia, polyuria Hematologic/Lymphatic: ABSENT: easy bleeding, easy bruising Physical Exam Vital Signs: Temp Pulse Resp BP Pulse Ox 100.9 F H 113 H 14 115/73 92 02/25/18 21:58 02/25/18 20:05 02/26/18 03:01 02/26/18 03:01 02/26/18 03:01 General appearance: PRESENT: cooperative, mild distress, obese. ABSENT: disheveled Head exam: PRESENT: atraumatic, normocephalic Eye exam: PRESENT: conjunctiva pink, EOMI, PERRLA. ABSENT: scleral icterus Ear exam: PRESENT: normal external ear exam Mouth exam: PRESENT: moist, tongue midline Respiratory exam: PRESENT: clear to auscultation abiola. ABSENT: rales, rhonchi, wheezes Cardiovascular exam: PRESENT: RRR. ABSENT: diastolic murmur, rubs, systolic murmur Pulses: PRESENT: normal dorsalis pedis pul Vascular exam: PRESENT: normal capillary refill GI/Abdominal exam: PRESENT: hypoactive bowel sounds, soft, tenderness. ABSENT: distended, firm, guarding, rigid Rectal exam: PRESENT: deferred Extremities exam: PRESENT: full ROM. ABSENT: calf tenderness, clubbing, pedal edema Neurological exam: PRESENT: alert, awake, oriented to person, oriented to place , oriented to time, oriented to situation, CN II-XII grossly intact. ABSENT: motor sensory deficit Psychiatric exam: PRESENT: agitated Skin exam: PRESENT: other - Sunburn Results Impressions: Abdomen/Pelvis CT 02/25/18 20:18 IMPRESSION: 1. No acute findings. 2. Nonobstructing left nephrolithiasis. 3. Fatty infiltration of the liver. 4. No significant interval change in the 5 mm pulmonary nodule at the right middle lobe. Followup CT thorax as per patient's risk factors. 5. Degenerative disc disease at L4-L5. Assessment & Plan - Diagnosis (1) Gastroenteritis Is this a current diagnosis for this admission?: Yes Plan: Presumed gastroenteritis patient's pain began while traveling. Empiric antibiotics, IV fluid challenge, follow-up stool studies, CBC and chemistry (2) Abdominal pain Is this a current diagnosis for this admission?: Yes Plan: Symptomatic management (3) Vomiting and diarrhea Is this a current diagnosis for this admission?: Yes Plan: Secondary to #1, symptomatic management - Time Time Spent: 30 to 50 Minutes
[2018-02-26 05:02] LABS: ABSOLUTE BASOPHILS # (AUTO) 0.1 10^3/uL (0.0-0.2); ABSOLUTE EOSINOPHILS # (AUTO) 0.1 10^3/uL (0.0-0.6); ABSOLUTE LYMPHOCYTES (AUTO) 2.5 10^3/uL (0.5-4.7); ABSOLUTE MONOCYTES (AUTO) 1.3 10^3/uL (0.1-1.4); ABSOLUTE NEUT (AUTO) 12.4 10^3/uL (1.7-8.2); BASOPHILS % (AUTO) 0.7 % (0-2); EOSINOPHILS % (AUTO) 0.5 % (0-6); HEMATOCRIT 46.7 % (37.9-51.0); HEMOGLOBIN 15.8 g/dL (13.5-17.0); LYMPHOCYTES % (AUTO) 15.1 % (13-45); MEAN CORPUSCULAR HEMOGLOBIN 31.3 pg (27.0-33.4); MEAN CORPUSCULAR HGB CONC 33.8 g/dL (32.0-36.0); MEAN CORPUSCULAR VOLUME 93 fl (80-97); MONOCYTES % (AUTO) 8.1 % (3-13); PLATELET COUNT 162 10^3/uL (150-450); RED BLOOD COUNT 5.04 10^6/uL (4.35-5.55); RED CELL DISTRIBUTION WIDTH 13.3 % (11.5-14.0); SEGMENTED NEUTROPHILS % (AUTO) 75.6 % (42-78); TOTAL CELLS COUNTED % (AUTO) 100 %; WHITE BLOOD COUNT 16.4 10^3/uL (4.0-10.5)
[2018-02-26 05:20] LABS: ALANINE AMINOTRANSFERASE 44 U/L (21-72); ALBUMIN 3.6 g/dL (3.5-5.0); ALKALINE PHOSPHATASE 60 U/L (38-126); ANION GAP 10 (5-19); ASPARTATE AMINO TRANSFERASE 17 U/L (17-59); BILIRUBIN,DIRECT 0.3 mg/dL (0.0-0.4); BILIRUBIN,TOTAL 0.8 mg/dL (0.2-1.3); BLOOD UREA NITROGEN 16 mg/dL (7-20); CALCIUM 8.9 mg/dL (8.4-10.2); CARBON DIOXIDE 30 mmol/L (22-30); CHLORIDE 102 mmol/L (98-107); GLUCOSE 107 mg/dL (75-110); POTASSIUM 4.4 mmol/L (3.6-5.0); TOTAL PROTEIN 6.4 g/dL (6.3-8.2)
[2018-02-26] MEDS: HEPARIN SOD (PORCINE) 5,000 UNIT/ML 1 ML SYRINGE SUBCUT SCH ×3 (05:58→22:32)
[2018-02-26] MEDS: ACETAMINOPHEN 325 MG TABLET PO PRN ×2 (06:46→16:03)
[2018-02-26] MEDS: CIPROFLOXACIN 400 MG/D5W RTU 400 MG/200 ML RTUPB IV SCH ×2 (10:11→22:32)
[2018-02-26] MEDS: FAMOTIDINE INJ/PF 20 MG/2 ML SDV IV SCH ×2 (10:11→22:32)
--- NOTE | 2018-02-26 14:42 | PDOC CONSULTATION ---
Consultation Consult Date: 02/26/18 Consult reason:: Abdominal pain History of Present Illness Admission Date/PCP: 02/25/18 23:58 Patient complains of: Abdominal pain and diarrhea History of Present Illness: ANNETTE GUERRERO is a 37 year old male with a one-day history of abdominal pain and diarrhea. The patient reports that he was on a day trip to [place], when his abdomen began hurting. The pain is situated in his left lower quadrant and steadily increased throughout the day. The pain is sharp and stabbing. It became severe. The patient had several bouts of diarrhea and experienced some dizziness. The patient has never had any symptoms similar to this before. The patient denies nausea, vomiting, melena, hematochezia, hematemesis, chest pain, shortness of breath. Nothing makes his pain better, but palpation and movement make it worse. The patient denies recent hospitalization or antibiotic administration. Past Medical History Medical History: None Past Surgical History Past Surgical History: Reports: Orthopedic Surgery - Rt knee, Rt ankle, Rt wrist Social History Information Source: Patient Lives with: Spouse/Significant other Smoking Status: Current Every Day Smoker Cigarettes Packs Per Day: 1 Number of Years Smokin Frequency of Alcohol Use: None Hx Recreational Drug Use: No Drugs: None Hx Prescription Drug Abuse: No - Advance Directive Resuscitation Status: Full Code Family History Family History: DM, Hypertension Parental Family History Reviewed: Yes Children Family History Reviewed: Yes Sibling(s) Family History Reviewed.: Yes Medication/Allergy Home Medications: No Home Medications 02/26/18 Allergies/Adverse Reactions: oxycodone HCl [From OxyContin] Allergy (Verified 02/25/18 20:01) Review of Systems Constitutional: PRESENT: anorexia, chills, fever(s) Eyes: ABSENT: visual disturbances Ears: ABSENT: hearing changes Nose, Mouth, and Throat: ABSENT: sore throat Cardiovascular: ABSENT: chest pain Respiratory: ABSENT: cough, dyspnea, hemoptysis Gastrointestinal: PRESENT: abdominal pain - Left side of abdomen, diarrhea. ABSENT: hematemesis, hematochezia, melena, nausea Genitourinary: ABSENT: dysuria Musculoskeletal: ABSENT: deformity Integumentary: PRESENT: other - Sunburn Neurological: PRESENT: dizziness. ABSENT: abnormal movements, confusion, lack of coordination Psychiatric: ABSENT: anxiety, depression Endocrine: ABSENT: cold intolerance, heat intolerance Hematologic/Lymphatic: ABSENT: easy bleeding, easy bruising, lymphadenopathy Physical Exam Vital Signs: Temp Pulse Resp BP Pulse Ox 98.7 F 55 L 16 116/81 94 02/26/18 11:31 02/26/18 12:07 02/26/18 11:53 02/26/18 11:31 02/26/18 11:53 Intake & Output 02/25/18 02/26/18 02/27/18 06:59 06:59 06:59 Weight 129 kg General appearance: PRESENT: no acute distress, obese Head exam: PRESENT: atraumatic, normocephalic Eye exam: PRESENT: EOMI, PERRLA. ABSENT: conjunctival injection, scleral icterus Mouth exam: PRESENT: neck supple Teeth exam: ABSENT: poor dentation Neck exam: ABSENT: lymphadenopathy, tenderness, thyromegaly, tracheal deviation Respiratory exam: PRESENT: clear to auscultation abiola, unlabored. ABSENT: chest wall tenderness, rales, rhonchi, tachypnea, wheezes Cardiovascular exam: PRESENT: RRR Pulses: PRESENT: normal radial pulses Vascular exam: PRESENT: normal capillary refill. ABSENT: pallor GI/Abdominal exam: PRESENT: tenderness - Left mid abdomen, other - No signs of peritonitis. ABSENT: guarding, mass, rebound Rectal exam: PRESENT: deferred Extremities exam: ABSENT: tenderness Musculoskeletal exam: PRESENT: normal inspection. ABSENT: tenderness Neurological exam: PRESENT: alert, awake, oriented to person, oriented to place , oriented to time, CN II-XII grossly intact. ABSENT: motor sensory deficit Psychiatric exam: ABSENT: agitated, anxious, depressed Skin exam: PRESENT: other - Sunburn to upper extremities and face.. ABSENT: cyanosis, erythema, jaundice, pallor Results Laboratory Results: 02/26/18 04:43 02/26/18 04:43 02/26/18 02/26/18 04:43 04:43 WBC 16.4 H RBC 5.04 Hgb 15.8 Hct 46.7 MCV 93 MCH 31.3 MCHC 33.8 RDW 13.3 Plt Count 162 Seg Neutrophils % 75.6 Lymphocytes % 15.1 Monocytes % 8.1 Eosinophils % 0.5 Basophils % 0.7 Absolute Neutrophils 12.4 H Absolute Lymphocytes 2.5 Absolute Monocytes 1.3 Absolute Eosinophils 0.1 Absolute Basophils 0.1 Sodium 142.0 Potassium 4.4 Chloride 102 Carbon Dioxide 30 Anion Gap 10 BUN 16 Creatinine 1.15 Est GFR ( Amer) > 60 Est GFR (Non-Af Amer) > 60 Glucose 107 Calcium 8.9 Total Bilirubin 0.8 AST 17 ALT 44 Alkaline Phosphatase 60 Total Protein 6.4 Albumin 3.6 Impressions: Abdomen/Pelvis CT 02/25/18 20:18 IMPRESSION: 1. No acute findings. 2. Nonobstructing left nephrolithiasis. 3. Fatty infiltration of the liver. 4. No significant interval change in the 5 mm pulmonary nodule at the right middle lobe. Followup CT thorax as per patient's risk factors. 5. Degenerative disc disease at L4-L5. Assessment & Plan - Diagnosis (1) Abdominal pain Is this a current diagnosis for this admission?: Yes - Plan Summary Plan Summary: This is a 37-year-old male with abdominal pain and diarrhea. I have reviewed his myriad labs and imaging. White blood cell count is elevated. His amylase and lipase are normal. I have personally reviewed his CT images. His CT scan is essentially normal (no evidence of peripancreatic stranding, appendicitis, diverticulitis, or bowel obstruction, large bowel obstruction, perforation, or intra-abdominal abscess). He has experienced subjective fevers and chills. Patient may be experiencing gastroenteritis versus early diverticulitis. The patient does not exhibit peritoneal signs, and I do not recommend surgical intervention at this time. Medical treatment is indicated at present. I will follow the patient very closely with you.
[2018-02-26] MEDS: ONDANSETRON HCL INJ/PF 4 MG/2 ML SDV IV PRN ×2 (14:49→22:32)
[2018-02-26] MEDS ORDERED: DICYCLOMINE HCL 20 MG TABLET PO ONE (15:00)
--- NOTE | 2018-02-26 17:08 | PDOC PROGRESS REPORT ---
Subjective Progress Note for:: 02/26/18 Subjective:: Still c/o abdominal pain He has been able to keep his food down Reason For Visit: COLITIS ABD PAIN ANNETTE GUERRERO is a 37 year old male with a history of morbid obesity who presents with 12 hours of abdominal pain nausea vomiting and diarrhea 1. Patient denies blood in vomit or diarrhea, no chest pain or shortness of breath. Subjective fever in the emergency room is found to have leukocytosis and left lower quadrant pain otherwise unremarkable workup. He is ordered empiric antibiotics, IV fluid, symptomatic management and referred to the hospitalist for admission. Patient is most comfortable lying flat no further episodes of emesis or diarrhea, he denies previous episode, suspect meals or recent antibiotics. Physical Exam Vital Signs: Temp Pulse Resp BP Pulse Ox 102.2 F H 87 20 112/54 L 91 L 02/26/18 15:22 02/26/18 15:22 02/26/18 15:22 02/26/18 15:22 02/26/18 15:22 Intake & Output 02/25/18 02/26/18 02/27/18 06:59 06:59 06:59 Weight 129 kg General appearance: PRESENT: no acute distress, well-developed, well-nourished Head exam: PRESENT: atraumatic, normocephalic Eye exam: PRESENT: conjunctiva pink, EOMI, PERRLA. ABSENT: scleral icterus Ear exam: PRESENT: normal external ear exam Mouth exam: PRESENT: tongue midline Neck exam: ABSENT: carotid bruit, JVD, lymphadenopathy, thyromegaly Respiratory exam: PRESENT: clear to auscultation abiola. ABSENT: rales, rhonchi, wheezes Cardiovascular exam: PRESENT: RRR. ABSENT: diastolic murmur, rubs, systolic murmur Pulses: PRESENT: normal dorsalis pedis pul Vascular exam: PRESENT: normal capillary refill GI/Abdominal exam: PRESENT: normal bowel sounds, soft, tenderness - generalized mild. ABSENT: distended, guarding, mass, organolmegaly, rebound Rectal exam: PRESENT: deferred Extremities exam: PRESENT: full ROM. ABSENT: calf tenderness, clubbing, pedal edema Neurological exam: PRESENT: alert, awake, oriented to person, oriented to place , oriented to time, oriented to situation, CN II-XII grossly intact. ABSENT: motor sensory deficit Psychiatric exam: PRESENT: appropriate affect, normal mood. ABSENT: homicidal ideation, suicidal ideation Skin exam: PRESENT: dry, intact, warm. ABSENT: cyanosis, rash Results Laboratory Results: 02/26/18 04:43 02/26/18 04:43 02/26/18 02/26/18 04:43 04:43 WBC 16.4 H RBC 5.04 Hgb 15.8 Hct 46.7 MCV 93 MCH 31.3 MCHC 33.8 RDW 13.3 Plt Count 162 Seg Neutrophils % 75.6 Lymphocytes % 15.1 Monocytes % 8.1 Eosinophils % 0.5 Basophils % 0.7 Absolute Neutrophils 12.4 H Absolute Lymphocytes 2.5 Absolute Monocytes 1.3 Absolute Eosinophils 0.1 Absolute Basophils 0.1 Sodium 142.0 Potassium 4.4 Chloride 102 Carbon Dioxide 30 Anion Gap 10 BUN 16 Creatinine 1.15 Est GFR ( Amer) > 60 Est GFR (Non-Af Amer) > 60 Glucose 107 Calcium 8.9 Total Bilirubin 0.8 AST 17 ALT 44 Alkaline Phosphatase 60 Total Protein 6.4 Albumin 3.6 Impressions: Abdomen/Pelvis CT 02/25/18 20:18 IMPRESSION: 1. No acute findings. 2. Nonobstructing left nephrolithiasis. 3. Fatty infiltration of the liver. 4. No significant interval change in the 5 mm pulmonary nodule at the right middle lobe. Followup CT thorax as per patient's risk factors. 5. Degenerative disc disease at L4-L5. Assessment & Plan - Diagnosis (1) Abdominal pain Is this a current diagnosis for this admission?: Yes Plan: Secondary to gastroenteritis. Bentyl prn, cont Dilaudid (2) Gastroenteritis Is this a current diagnosis for this admission?: Yes Plan: Cont Flagyl and Cipro (3) Sepsis Qualifiers: Sepsis type: sepsis due to unspecified organism Qualified Code(s): A41.9 - Sepsis, unspecified organism Is this a current diagnosis for this admission?: Yes - Time Time Spent with patient: 15-24 minutes Medications reviewed and adjusted accordingly: Yes Anticipated discharge: Home Within: within 72 hours - Inpatient Certification Based on my medical assessment, after consideration of the patient's comorbidities, presenting symptoms, or acuity I expect that the services needed warrant INPATIENT care.: Yes Medical Necessity: Need For IV Fluids, Need for IV Antibiotics
[2018-02-26] MEDS: RINGERS SOLUTION,LACTATED 1,000 ML IV PRN (18:22)
[2018-02-26] MEDS: DICYCLOMINE HCL 20 MG TABLET PO SCH ×2 (18:22→22:32)
[2018-02-27] MEDS: METRONIDAZOLE 500 MG TABLET PO SCH ×4 (00:19→21:22)
[2018-02-27] MEDS: HYDROMORPHONE HCL INJ/PF 2 MG/ML AMPULE IV PRN ×3 (00:20→09:07)
[2018-02-27] MEDS: RINGERS SOLUTION,LACTATED 1,000 ML IV PRN (05:17)
[2018-02-27] MEDS: HEPARIN SOD (PORCINE) 5,000 UNIT/ML 1 ML SYRINGE SUBCUT SCH ×3 (05:18→21:27)
[2018-02-27 06:05] LABS: ABSOLUTE BASOPHILS # (AUTO) 0.1 10^3/uL (0.0-0.2); ABSOLUTE EOSINOPHILS # (AUTO) 0.1 10^3/uL (0.0-0.6); ABSOLUTE LYMPHOCYTES (AUTO) 2.3 10^3/uL (0.5-4.7); ABSOLUTE MONOCYTES (AUTO) 1.6 10^3/uL (0.1-1.4); ABSOLUTE NEUT (AUTO) 11.8 10^3/uL (1.7-8.2); BASOPHILS % (AUTO) 0.5 % (0-2); EOSINOPHILS % (AUTO) 0.7 % (0-6); HEMATOCRIT 44.5 % (37.9-51.0); HEMOGLOBIN 15.3 g/dL (13.5-17.0); LYMPHOCYTES % (AUTO) 14.6 % (13-45); MEAN CORPUSCULAR HEMOGLOBIN 31.6 pg (27.0-33.4); MEAN CORPUSCULAR HGB CONC 34.2 g/dL (32.0-36.0); MEAN CORPUSCULAR VOLUME 92 fl (80-97); MONOCYTES % (AUTO) 9.9 % (3-13); PLATELET COUNT 163 10^3/uL (150-450); RED BLOOD COUNT 4.83 10^6/uL (4.35-5.55); RED CELL DISTRIBUTION WIDTH 12.9 % (11.5-14.0); SEGMENTED NEUTROPHILS % (AUTO) 74.3 % (42-78); TOTAL CELLS COUNTED % (AUTO) 100 %; WHITE BLOOD COUNT 15.9 10^3/uL (4.0-10.5)
[2018-02-27 06:32] LABS: ANION GAP 9 (5-19); BLOOD UREA NITROGEN 14 mg/dL (7-20); CALCIUM 9.1 mg/dL (8.4-10.2); CARBON DIOXIDE 30 mmol/L (22-30); CHLORIDE 101 mmol/L (98-107); GLUCOSE 106 mg/dL (75-110); POTASSIUM 4.2 mmol/L (3.6-5.0); SODIUM 139.9 mmol/L (137-145)
[2018-02-27] MEDS: CIPROFLOXACIN 400 MG/D5W RTU 400 MG/200 ML RTUPB IV SCH (09:06)
[2018-02-27] MEDS: FAMOTIDINE INJ/PF 20 MG/2 ML SDV IV SCH (09:07)
[2018-02-27] MEDS: DICYCLOMINE HCL 20 MG TABLET PO SCH ×4 (09:09→21:22)
--- NOTE | 2018-02-27 09:20 | PDOC PROGRESS REPORT ---
Subjective Progress Note for:: 02/27/18 Subjective:: This is the second hospital if the patient admitted with abdominal pain nausea vomiting diarrhea dizziness. Patient still having some pain but overall improved compared to admission. Had some nausea with p.o. intake Reason For Visit: COLITIS ABD PAIN Physical Exam Vital Signs: Temp Pulse Resp BP Pulse Ox 100.3 F 60 16 126/86 H 96 02/27/18 03:25 02/27/18 03:25 02/27/18 03:25 02/27/18 03:25 02/27/18 03:25 Intake & Output 02/26/18 02/27/18 02/28/18 06:59 06:59 06:59 Intake Total 1808 Output Total 300 Balance 1508 Weight 133.9 kg General appearance: PRESENT: no acute distress GI/Abdominal exam: PRESENT: other - Abdomen is benign no peritoneal signs no rigidity no guarding no organomegaly Results Laboratory Results: 02/27/18 05:33 02/27/18 05:33 02/27/18 02/27/18 05:33 05:33 WBC 15.9 H RBC 4.83 Hgb 15.3 Hct 44.5 MCV 92 MCH 31.6 MCHC 34.2 RDW 12.9 Plt Count 163 Seg Neutrophils % 74.3 Lymphocytes % 14.6 Monocytes % 9.9 Eosinophils % 0.7 Basophils % 0.5 Absolute Neutrophils 11.8 H Absolute Lymphocytes 2.3 Absolute Monocytes 1.6 H Absolute Eosinophils 0.1 Absolute Basophils 0.1 Sodium 139.9 Potassium 4.2 Chloride 101 Carbon Dioxide 30 Anion Gap 9 BUN 14 Creatinine 0.99 Est GFR ( Amer) > 60 Est GFR (Non-Af Amer) > 60 Glucose 106 Calcium 9.1 Impressions: Abdomen/Pelvis CT 02/25/18 20:18 IMPRESSION: 1. No acute findings. 2. Nonobstructing left nephrolithiasis. 3. Fatty infiltration of the liver. 4. No significant interval change in the 5 mm pulmonary nodule at the right middle lobe. Followup CT thorax as per patient's risk factors. 5. Degenerative disc disease at L4-L5. Assessment & Plan - Diagnosis (1) Gastroenteritis Is this a current diagnosis for this admission?: Yes Plan: Generalized gastrointestinal symptoms improved but not resolved; abdomen remains benign; low suspicion for intra-abdominal surgical problem.: Recommendations 1. Continue supportive therapy; no indication for further intervention at this time 2. Reconsult surgery if indicated.
[2018-02-27] MEDS ORDERED: MORPHINE SULFATE 10 MG/ML INJ IV PRN (10:54)
[2018-02-27] MEDS ORDERED: OXYCODONE HCL IR 5 MG TABLET PO PRN (10:55)
[2018-02-27] MEDS ORDERED: ONDANSETRON HCL INJ/PF 4 MG/2 ML SDV IV PRN (11:30)
--- NOTE | 2018-02-27 11:53 | PDOC PROGRESS REPORT ---
Subjective Progress Note for:: 02/27/18 Subjective:: Patient is seen resting in bed. His mother is at the bedside. He denies nausea , vomiting or abdominal pain at the present time. He denies any chest pain, shortness of breath or dyspnea. He denies any fevers or chills. He denies any significant arthralgias or myalgias. He still has some mild epigastric tenderness to palpation. This has overall improved a great deal since admission. Mother states he has had recurrent stomach issues over the last year Reason For Visit: COLITIS ABD PAIN Physical Exam Vital Signs: Temp Pulse Resp BP Pulse Ox 98.9 F 77 18 134/90 H 96 02/27/18 07:29 02/27/18 10:35 02/27/18 10:35 02/27/18 07:29 02/27/18 10:35 Intake & Output 02/26/18 02/27/18 02/28/18 06:59 06:59 06:59 Intake Total 1808 Output Total 300 Balance 1508 Weight 133.9 kg General appearance: PRESENT: no acute distress, obese, well-developed, well- nourished Head exam: PRESENT: atraumatic, normocephalic Eye exam: PRESENT: conjunctiva pink, EOMI, PERRLA. ABSENT: scleral icterus Ear exam: PRESENT: normal external ear exam Mouth exam: PRESENT: moist, tongue midline Neck exam: ABSENT: carotid bruit, JVD, lymphadenopathy, thyromegaly Respiratory exam: PRESENT: clear to auscultation abiola. ABSENT: rales, rhonchi, wheezes Cardiovascular exam: PRESENT: RRR. ABSENT: diastolic murmur, rubs, systolic murmur Pulses: PRESENT: normal dorsalis pedis pul Vascular exam: PRESENT: normal capillary refill GI/Abdominal exam: PRESENT: normal bowel sounds - mild epigastric tenderness, soft, tenderness Rectal exam: PRESENT: deferred Extremities exam: PRESENT: full ROM. ABSENT: calf tenderness, clubbing, pedal edema Musculoskeletal exam: PRESENT: ambulatory Neurological exam: PRESENT: alert, awake, oriented to person, oriented to place , oriented to time, oriented to situation, CN II-XII grossly intact. ABSENT: motor sensory deficit Psychiatric exam: PRESENT: appropriate affect, normal mood. ABSENT: homicidal ideation, suicidal ideation Skin exam: PRESENT: dry, intact, warm. ABSENT: cyanosis, rash Results Laboratory Results: 02/27/18 05:33 02/27/18 05:33 02/27/18 02/27/18 05:33 05:33 WBC 15.9 H RBC 4.83 Hgb 15.3 Hct 44.5 MCV 92 MCH 31.6 MCHC 34.2 RDW 12.9 Plt Count 163 Seg Neutrophils % 74.3 Lymphocytes % 14.6 Monocytes % 9.9 Eosinophils % 0.7 Basophils % 0.5 Absolute Neutrophils 11.8 H Absolute Lymphocytes 2.3 Absolute Monocytes 1.6 H Absolute Eosinophils 0.1 Absolute Basophils 0.1 Sodium 139.9 Potassium 4.2 Chloride 101 Carbon Dioxide 30 Anion Gap 9 BUN 14 Creatinine 0.99 Est GFR ( Amer) > 60 Est GFR (Non-Af Amer) > 60 Glucose 106 Calcium 9.1 Impressions: Abdomen/Pelvis CT 02/25/18 20:18 IMPRESSION: 1. No acute findings. 2. Nonobstructing left nephrolithiasis. 3. Fatty infiltration of the liver. 4. No significant interval change in the 5 mm pulmonary nodule at the right middle lobe. Followup CT thorax as per patient's risk factors. 5. Degenerative disc disease at L4-L5. Assessment & Plan - Diagnosis (1) Vomiting and diarrhea Is this a current diagnosis for this admission?: No Plan: This has resolved (2) Abdominal pain Qualifiers: Abdominal location: epigastric Qualified Code(s): R10.13 - Epigastric pain Is this a current diagnosis for this admission?: Yes Plan: Pain is now more epigastric than left lower quadrant (3) Gastroenteritis Is this a current diagnosis for this admission?: Yes Plan: Symptoms have improved. Will continue IV antibiotics next 24 hours and transition to oral if he tolerates regular diet he can be discharged (4) Sepsis Qualifiers: Sepsis type: sepsis due to unspecified organism Qualified Code(s): A41.9 - Sepsis, unspecified organism Is this a current diagnosis for this admission?: No Plan: Resolved. Treated with IV fluids and antibiotics
[2018-02-27] MEDS: TRAMADOL HCL 50 MG TABLET PO PRN ×2 (14:41→21:26)
[2018-02-27] MEDS: CIPROFLOXACIN HCL 500 MG TABLET PO SCH (21:23)
[2018-02-27] MEDS: FAMOTIDINE 20 MG TABLET PO SCH (21:23)
[2018-02-27] MEDS: ACETAMINOPHEN 325 MG TABLET PO PRN (21:23)
[2018-02-28] MEDS: HEPARIN SOD (PORCINE) 5,000 UNIT/ML 1 ML SYRINGE SUBCUT SCH (05:31)
[2018-02-28 06:00] LABS: ABSOLUTE BASOPHILS # (AUTO) 0.1 10^3/uL (0.0-0.2); ABSOLUTE EOSINOPHILS # (AUTO) 0.3 10^3/uL (0.0-0.6); ABSOLUTE LYMPHOCYTES (AUTO) 2.5 10^3/uL (0.5-4.7); ABSOLUTE MONOCYTES (AUTO) 1.2 10^3/uL (0.1-1.4); BASOPHILS % (AUTO) 0.8 % (0-2); EOSINOPHILS % (AUTO) 3.2 % (0-6); HEMATOCRIT 44.3 % (37.9-51.0); HEMOGLOBIN 15.2 g/dL (13.5-17.0); LYMPHOCYTES % (AUTO) 24.3 % (13-45); MEAN CORPUSCULAR HEMOGLOBIN 31.7 pg (27.0-33.4); MEAN CORPUSCULAR HGB CONC 34.2 g/dL (32.0-36.0); MEAN CORPUSCULAR VOLUME 93 fl (80-97); MONOCYTES % (AUTO) 12.1 % (3-13); PLATELET COUNT 189 10^3/uL (150-450); RED BLOOD COUNT 4.78 10^6/uL (4.35-5.55); RED CELL DISTRIBUTION WIDTH 12.9 % (11.5-14.0); SEGMENTED NEUTROPHILS % (AUTO) 59.6 % (42-78); TOTAL CELLS COUNTED % (AUTO) 100 %; WHITE BLOOD COUNT 10.1 10^3/uL (4.0-10.5)
[2018-02-28] MEDS: METRONIDAZOLE 500 MG TABLET PO SCH (06:43)
[2018-02-28] MEDS: CIPROFLOXACIN HCL 500 MG TABLET PO SCH (09:13)
[2018-02-28] MEDS: FAMOTIDINE 20 MG TABLET PO SCH (09:14)
[2018-02-28] MEDS: DICYCLOMINE HCL 20 MG TABLET PO SCH (09:14)
[2018-02-28] MEDS: TRAMADOL HCL 50 MG TABLET PO PRN (09:22)
[2018-02-28 11:01] VITALS: BP 116/81
--- NOTE | 2018-02-28 14:17 | PDOC DISCHARGE SUMMARY ---
General - Admit/Disc Date/PCP Admission Date/Primary Care Provider: 02/25/18 23:58 Discharge Date: 02/28/18 - Discharge Diagnosis (1) Vomiting and diarrhea Is this a current diagnosis for this admission?: No Summary: Resolved (2) Abdominal pain Is this a current diagnosis for this admission?: Yes Summary: Resolved (3) Gastroenteritis Is this a current diagnosis for this admission?: Yes (4) Sepsis Is this a current diagnosis for this admission?: No - Additional Information Resuscitation Status: Full Code Discharge Diet: Regular Discharge Activity: Activity As Tolerated, Balance Activity w/Rest Prescriptions: Tramadol HCl [Ultram] 50 mg PO Q4HP PRN #30 tablet PRN Reason: Ciprofloxacin HCl [Cipro 500 mg Tablet] 500 mg PO Q12 #12 tablet Metronidazole [Flagyl 500 mg Tablet] 500 mg PO Q8 #18 tablet Home Medications: Acetaminophen [Tylenol 325 mg Tablet] 650 mg PO Q4HP PRN tablet 02/28/18 Ciprofloxacin HCl [Cipro 500 mg Tablet] 500 mg PO Q12 #12 tablet 02/28/18 Famotidine [Pepcid 20 mg Tablet] 20 mg PO Q12 tablet 02/28/18 Metronidazole [Flagyl 500 mg Tablet] 500 mg PO Q8 #18 tablet 02/28/18 Tramadol HCl [Ultram] 50 mg PO Q4HP PRN #30 tablet 02/28/18 History of Present Illness Patient complains of: Nausea, vomiting and abdominal pain History of Present Illness: ANNETTE GUERRERO is a 37 year old male with a history of morbid obesity who presents with 12 hours of abdominal pain nausea vomiting and diarrhea 1. Patient denies blood in vomit or diarrhea, no chest pain or shortness of breath. Subjective fever in the emergency room is found to have leukocytosis and left lower quadrant pain otherwise unremarkable workup. He is ordered empiric antibiotics, IV fluid, symptomatic management and referred to the hospitalist for admission. Patient is most comfortable lying flat no further episodes of emesis or diarrhea, he denies previous episode, suspect meals or recent antibiotics. Hospital Course Hospital Course: Patient was admitted to telemetry floor and given IV fluids, antibiotics antiemetics and pain medicine. Surgery was consulted for their input. Dr Kaiser saw the patient in consult. He recommended medical management of presumed infectious gastroenteritis. The patient's leukocytosis, fever and abdominal pain improved over the next 48 hours. He is able to tolerate clear liquid diet. No further vomiting or diarrhea. IV fluids were discontinued on his third hospital day. He was transitioned to oral antibiotics and pain medicine. He was able to tolerate a regular diet. At this point he is ready for discharge. Physical Exam Vital Signs: Temp Pulse Resp BP Pulse Ox 98.1 F 62 12 116/81 95 02/28/18 10:57 02/28/18 10:57 02/28/18 10:57 02/28/18 10:57 02/28/18 10:57 Intake & Output 02/27/18 02/28/18 03/01/18 06:59 06:59 06:59 Intake Total 1808 1390 Output Total 300 1900 Balance 1508 -510 Weight 133.9 kg 129.9 kg General appearance: PRESENT: no acute distress, obese, well-developed, well- nourished Head exam: PRESENT: atraumatic, normocephalic Eye exam: PRESENT: conjunctiva pink, EOMI, PERRLA. ABSENT: scleral icterus Ear exam: PRESENT: normal external ear exam Mouth exam: PRESENT: moist, tongue midline Neck exam: ABSENT: carotid bruit, JVD, lymphadenopathy, thyromegaly Respiratory exam: PRESENT: clear to auscultation abiola. ABSENT: rales, rhonchi, wheezes Cardiovascular exam: PRESENT: RRR. ABSENT: diastolic murmur, rubs, systolic murmur Pulses: PRESENT: normal dorsalis pedis pul Vascular exam: PRESENT: normal capillary refill GI/Abdominal exam: PRESENT: normal bowel sounds, soft. ABSENT: distended, guarding, mass, organolmegaly, rebound, tenderness Rectal exam: PRESENT: deferred Extremities exam: PRESENT: full ROM. ABSENT: calf tenderness, clubbing, pedal edema Neurological exam: PRESENT: alert, awake, oriented to person, oriented to place , oriented to time, oriented to situation, CN II-XII grossly intact. ABSENT: motor sensory deficit Psychiatric exam: PRESENT: appropriate affect, normal mood. ABSENT: homicidal ideation, suicidal ideation Skin exam: PRESENT: dry, intact, warm. ABSENT: cyanosis, rash Results Laboratory Results: 02/28/18 05:18 02/27/18 05:33 02/28/18 05:18 WBC 10.1 RBC 4.78 Hgb 15.2 Hct 44.3 MCV 93 MCH 31.7 MCHC 34.2 RDW 12.9 Plt Count 189 Seg Neutrophils % 59.6 Lymphocytes % 24.3 Monocytes % 12.1 Eosinophils % 3.2 Basophils % 0.8 Absolute Neutrophils 6.0 Absolute Lymphocytes 2.5 Absolute Monocytes 1.2 Absolute Eosinophils 0.3 Absolute Basophils 0.1 Impressions: Abdomen/Pelvis CT 02/25/18 20:18 IMPRESSION: 1. No acute findings. 2. Nonobstructing left nephrolithiasis. 3. Fatty infiltration of the liver. 4. No significant interval change in the 5 mm pulmonary nodule at the right middle lobe. Followup CT thorax as per patient's risk factors. 5. Degenerative disc disease at L4-L5. Qualifiers - * PATIENT BEING DISCHARGED WITH ANY OF THE FOLLOWING DIAGNOSIS: No Plan Discharge Plan: Home. Follow up with [facility] Time Spent: Less than 30 Minutes
[2018-03-01 07:05] LABS: HELICOBACTER PYLORI IGA AB <9.0 units (0.0-8.9); HELICOBACTER PYLORI IGM AB <9.0 units (0.0-8.9)
== END 2018-02-28 11:26 | disposition home or self-care (01) | DRG 872 ==
LOC: ER 20:00 → EH 23:58 → 3S 02-26 11:23
PROVIDERS: ADMIT Internal Medicine; ATTEND Internal Medicine
DX: A41.9 Sepsis, unspecified organism (principal); A09 Infectious gastroenteritis and colitis, unspecified; R11.2 Nausea with vomiting, unspecified; E66.01 Morbid (severe) obesity due to excess calories; F17.210 Nicotine dependence, cigarettes, uncomplicated
CPT/HCPCS: 36415; 74177; 80048; 80053; 81001; 83605; 83690; 85025; 86677; 87040; 87086; 96361; 96374; 96375; 99285; J0744; J1170; J1644; J1885; J2405; J3010; J3490; J7030; J7120; S0028

== ENCOUNTER 2018-03-04 21:08 | Inpatient (IN) | payer SELFPAY ==
[2018-03-04] MEDS ORDERED: NORMAL SALINE 1000 ML 1,000 ML IV ONE (21:29)
[2018-03-04] MEDS ORDERED: ONDANSETRON HCL INJ/PF 4 MG/2 ML SDV IV ONE (21:37)
[2018-03-04 21:52] LABS: HEMATOCRIT 53.8 % (37.9-51.0); HEMOGLOBIN 18.4 g/dL (13.5-17.0); MEAN CORPUSCULAR HEMOGLOBIN 31.9 pg (27.0-33.4); MEAN CORPUSCULAR HGB CONC 34.1 g/dL (32.0-36.0); MEAN CORPUSCULAR VOLUME 93 fl (80-97); PLATELET COUNT 340 10^3/uL (150-450); RED BLOOD COUNT 5.76 10^6/uL (4.35-5.55); RED CELL DISTRIBUTION WIDTH 13.1 % (11.5-14.0); WHITE BLOOD COUNT 20.6 10^3/uL (4.0-10.5)
[2018-03-04 22:08] LABS: ALANINE AMINOTRANSFERASE 48 U/L (21-72); ALBUMIN 4.6 g/dL (3.5-5.0); ALKALINE PHOSPHATASE 87 U/L (38-126); ANION GAP 18 (5-19); ASPARTATE AMINO TRANSFERASE 22 U/L (17-59); BILIRUBIN,DIRECT 0.4 mg/dL (0.0-0.4); BILIRUBIN,TOTAL 0.5 mg/dL (0.2-1.3); BLOOD UREA NITROGEN 15 mg/dL (7-20); CARBON DIOXIDE 26 mmol/L (22-30); CHLORIDE 102 mmol/L (98-107); GLUCOSE 180 mg/dL (75-110); POTASSIUM 4.4 mmol/L (3.6-5.0); SODIUM 145.6 mmol/L (137-145)
[2018-03-04 22:12] LABS: ABSOLUTE LYMPHOCYTES# (MANUAL) 4.3 10^3/uL (0.5-4.7); ABSOLUTE MONOCYTES # (MANUAL) 1.4 10^3/uL (0.1-1.4); ABSOLUTE NEUTROPHILS# (MANUAL) 14.8 10^3/uL (1.7-8.2); BAND NEUTROPHILS % (MANUAL) 2 % (3-5); BASOPHILS % (MANUAL) 0 % (0-2); EOSINOPHILS % (MANUAL) 0 % (0-6); LYMPHOCYTES % (MANUAL) 21 % (13-45); MONOCYTES % (MANUAL) 7 % (3-13); SEGMENTED NEUTROPHILS % (MAN) 70 % (42-78); TOTAL CELLS COUNTED 100
[2018-03-04 22:17] LABS: TOXIC VACUOLATION PRESENT
[2018-03-04 22:18] LABS: PLATELET COMMENT ADEQUATE; PLATELET LARGE PRESENT
--- NOTE | 2018-03-04 22:26 | RADIOLOGY REPORT (SQ) ---
EXAM DESCRIPTION: ABDOMEN 2 VIEWS COMPLETED DATE/TIME: 03/04/2018 10:15 pm REASON FOR STUDY: eval obstruction COMPARISON: None. NUMBER OF VIEWS: Two views. TECHNIQUE: Supine and erect/decubitus radiographic images of the abdomen acquired. LIMITATIONS: None. FINDINGS: FREE AIR: None. No abnormal gas collections. LUNG BASES: Clear. BOWEL GAS PATTERN: Nonobstructive pattern. No dilated loops or air fluid levels. CALCIFICATIONS: No suspicious calcifications. SOFT TISSUES: No gross mass or suggestion of organomegaly. HARDWARE: None in the abdomen. BONES: No acute fracture. No worrisome bone lesions. OTHER: No other significant finding. IMPRESSION: NO RADIOGRAPHIC EVIDENCE FOR ACUTE ABDOMINAL DISEASE. TECHNICAL DOCUMENTATION: JOB ID: [id number] [employer]- All Rights Reserved Reading location - IP/workstation name: [email or web address]
[2018-03-04] MEDS ORDERED: METRONIDAZOLE 500 MG/NS RTU 100 ML IV ONE (22:58)
[2018-03-04] MEDS ORDERED: CEFTRIAXONE INJ 1000 MG VIAL IV ONE (22:58)
[2018-03-04] MEDS ORDERED: CIPROFLOXACIN 400 MG/D5W RTU 400 MG/200 ML RTUPB IV ONE (23:00)
--- NOTE | 2018-03-04 23:01 | ER Document Report ---
ED General - General Chief Complaint: Vomiting Stated Complaint: VOMITING Time Seen by Provider: 03/04/18 22:01 Notes: Patient is a 37-year-old male without chronic medical problems recently hospitalized for colitis who presents after being discharged 4 days ago with ongoing nausea and vomiting. Patient reports that since being discharged he has been able to tolerate oral intake and continues to have persistent vomiting at home. He reports that this has prevented him from taking his oral antibiotics and he feels like this is worsening his symptoms. He has not had any recurrent abdominal pain, diarrhea or fever however since going home. He has not yet followed up with his primary care doctor. Nothing seems to improve or worsen his symptoms. He states that his symptoms have been unchanged since being discharged from the hospital and have prevented him from taking any oral intake other than fluids. He does note a generalized body ache diffusely that is a cramping, aching, sore discomfort. This symptom has been worsening since onset. TRAVEL OUTSIDE OF THE [place] IN LAST 30 DAYS: No - Related Data Allergies/Adverse Reactions: oxycodone HCl [From OxyContin] Allergy (Verified 03/04/18 21:11) Past Medical History - General Information source: Patient - Social History Smoking Status: Never Smoker Chew tobacco use (# tins/day): No Frequency of alcohol use: None Drug Abuse: None Lives with: Spouse/Significant other Family History: DM, Hypertension Patient has suicidal ideation: No Patient has homicidal ideation: No Renal/ Medical History: Reports: Hx Kidney Stones. Denies: Hx Peritoneal Dialysis Past Surgical History: Reports: Hx Orthopedic Surgery - Rt knee, Rt ankle, Rt wrist - Immunizations Hx Diphtheria, Pertussis, Tetanus Vaccination: Yes Review of Systems - Review of Systems Notes: Constitutional: Negative for fever. Positive for myalgias HENT: Negative for sore throat. Eyes: Negative for visual changes. Cardiovascular: Negative for chest pain. Respiratory: Negative for shortness of breath. Gastrointestinal: Positive for nausea and vomiting Genitourinary: Negative for dysuria. Musculoskeletal: Negative for back pain. Skin: Negative for rash. Neurological: Negative for headaches, weakness or numbness. 10 point ROS negative except as marked above and in HPI. Physical Exam - Vital signs Vitals: Temp Pulse Resp BP Pulse Ox 98.7 F 113 H 16 140/101 H 96 03/04/18 21:14 03/04/18 21:14 03/04/18 21:14 03/04/18 21:14 03/04/18 21:14 Interpretation: Hypertensive, Tachycardic Notes: PHYSICAL EXAMINATION: GENERAL: Appears moderately uncomfortable but in no acute distress HEAD: Atraumatic, normocephalic. EYES: Pupils equal round and reactive to light, extraocular movements intact, sclera anicteric, conjunctiva are normal. ENT: nares patent, oropharynx clear without exudates. Mildly dry mucous membranes. NECK: Normal range of motion, supple without lymphadenopathy LUNGS: Breath sounds clear to auscultation bilaterally and equal. No wheezes rales or rhonchi. HEART: Regular rate and rhythm without murmurs ABDOMEN: Soft, nontender, normoactive bowel sounds. No guarding, no rebound. No masses appreciated. EXTREMITIES: Normal range of motion, no pitting or edema. No cyanosis. NEUROLOGICAL: No focal neurological deficits. Moves all extremities spontaneously and on command. PSYCH: Normal mood, normal affect. SKIN: Warm, Dry, normal turgor, no rashes or lesions noted. Course - Re-evaluation Re-evalutation: 03/04/18 22:58 Patient presents with recurrence of vomiting after being discharged on the that has been ongoing since he was discharged from the hospital. The patient was seen by me on the originally, hospitalized for a total of 2 days at which time he was discharged with a diagnosis of colitis on oral antibiotics and at that time was noted to be tolerating oral intake. Patient however reports that since returning home he has been vomiting continuously anytime he attempts to eat. He denies any ongoing abdominal pain rather reports just generalized body aches and feeling generally unwell. Notably since the when the patient was first seen and evaluated he weighed 132 kg and today is down to 127 kg. His laboratories again today show a marked increase in his white blood cell count which had also normalized prior to his previous discharge. Patient also notes that due to his nausea and vomiting he has been unable to tolerate oral antibiotics with which she was sent home. He has been able to drink fluids there is no evidence of acute kidney injury on laboratories. He has not had any recurrent abdominal pain or fever. I believe this is ongoing colitis that the patient has not yet been able to resolve due to his inability to tolerate oral intake including antibiotic at home. He has been restarted on IV ceftriaxone and metronidazole. IV fluids and antiemetics have been provided. I will discuss with the hospitalist for admission. - Vital Signs Vital signs: Temp Pulse Resp BP Pulse Ox 98.4 F 65 18 118/65 98 03/05/18 01:56 03/05/18 01:56 03/05/18 01:56 03/05/18 01:56 03/05/18 01:56 - Laboratory Result Diagrams: 03/04/18 21:34 03/04/18 21:34 Laboratory results interpreted by me: 03/04/18 03/04/18 03/04/18 21:34 21:34 21:34 WBC 20.6 H RBC 5.76 H Hgb 18.4 H Hct 53.8 H Band Neutrophils % 2 L Abs Neuts (Manual) 14.8 H Sodium 145.6 H Glucose 180 H Lactic Acid 2.7 H - Diagnostic Test Radiology reviewed: Image reviewed, Reports reviewed Radiology results interpreted by me: 03/04/18 23:22 2 view abdomen: No evidence of obstruction or perforation. Discharge - Discharge Clinical Impression: Colitis, Weight loss Nausea and vomiting Qualifiers: Vomiting type: unspecified Vomiting Intractability: intractable Qualified Code( s): R11.2 - Nausea with vomiting, unspecified Condition: Fair Disposition: ADMITTED INPATIENT Admitting Provider: Hospitalist Unit Admitted: Medical Floor
[2018-03-04] MEDS ORDERED: ACETAMINOPHEN 325 MG TABLET PO PRN (23:40)
[2018-03-04] MEDS ORDERED: ALPRAZOLAM 0.5 MG TABLET PO ONE (23:46)
[2018-03-05] MEDS ORDERED: CIPROFLOXACIN 400 MG/D5W RTU 400 MG/200 ML RTUPB IV ONE
[2018-03-05] MEDS: NORMAL SALINE 1000 ML 1,000 ML IV PRN ×2 (00:12→22:27)
--- NOTE | 2018-03-05 01:03 | PDOC H&P ---
History of Present Illness Admission Date/PCP: 03/04/18 23:36 History of Present Illness: ANNETTE GUERRERO is a 37 year old male patient with no significant medical history presents with chief complaint of nausea, vomiting and poor oral intake. Of note patient discharged from this hospital 4 days ago after he was treated for colitis with IV Cipro and Flagyl. Patient sent home with oral antibiotics but he could not tolerate the medication and continues to have vomiting. His initial blood workup shows leukocytosis of 20,000. No fever, chills, diarrhea, chest pain or urinary complaints. He endorsed generalized body aching. No headache dizziness or blurry vision. Past Medical History Medical History: None Past Surgical History Past Surgical History: Reports: Orthopedic Surgery - Rt knee, Rt ankle, Rt wrist Social History Smoking Status: Never Smoker Frequency of Alcohol Use: None Hx Recreational Drug Use: No Drugs: None Hx Prescription Drug Abuse: No - Advance Directive Resuscitation Status: Full Code Family History Family History: DM, Hypertension Parental Family History Reviewed: Yes Children Family History Reviewed: Yes Sibling(s) Family History Reviewed.: Yes Medication/Allergy Home Medications: Acetaminophen [Tylenol 325 mg Tablet] 650 mg PO Q4HP PRN tablet 02/28/18 Ciprofloxacin HCl [Cipro 500 mg Tablet] 500 mg PO Q12 #12 tablet 02/28/18 Famotidine [Pepcid 20 mg Tablet] 20 mg PO Q12 tablet 02/28/18 Metronidazole [Flagyl 500 mg Tablet] 500 mg PO Q8 #18 tablet 02/28/18 Tramadol HCl [Ultram] 50 mg PO Q4HP PRN #30 tablet 02/28/18 Allergies/Adverse Reactions: oxycodone HCl [From OxyContin] Allergy (Verified 03/04/18 21:11) Review of Systems Constitutional: PRESENT: as per HPI Nose, Mouth, and Throat: PRESENT: as per HPI Cardiovascular: PRESENT: as per HPI Respiratory: PRESENT: as per HPI Gastrointestinal: PRESENT: as per HPI Neurological: PRESENT: as per HPI Psychiatric: PRESENT: as per HPI Physical Exam Vital Signs: Temp Pulse Resp BP Pulse Ox 98.2 F 113 H 24 H 115/67 95 03/05/18 00:51 03/04/18 21:14 03/05/18 00:01 03/05/18 00:00 03/05/18 00:01 General appearance: PRESENT: mild distress Head exam: PRESENT: atraumatic, normocephalic Respiratory exam: PRESENT: clear to auscultation abiola. ABSENT: rales, rhonchi, wheezes Cardiovascular exam: PRESENT: RRR. ABSENT: diastolic murmur, rubs, systolic murmur GI/Abdominal exam: PRESENT: other - Moderately obese abdomen Neurological exam: PRESENT: alert, awake, oriented to time, oriented to situation Results Impressions: Abdomen X-Ray 03/04/18 22:04 IMPRESSION: NO RADIOGRAPHIC EVIDENCE FOR ACUTE ABDOMINAL DISEASE. Assessment & Plan - Diagnosis (1) Colitis Is this a current diagnosis for this admission?: Yes Plan: Patient has been restarted on IV Cipro and metronidazole. - Inpatient Certification Medical Necessity: Need for IV Antibiotics
[2018-03-05 03:15] LABS: APPEARANCE,URINE CLEAR; BILIRUBIN,URINE NEGATIVE (NEGATIVE); COLOR,URINE YELLOW; GLUCOSE, URINE NEGATIVE (NEGATIVE); KETONES,URINE NEGATIVE (NEGATIVE); LEUKOCYTE ESTERASE,URINE NEGATIVE (NEGATIVE); NITRITE,URINE NEGATIVE (NEGATIVE); PROTEIN,URINE NEGATIVE (NEGATIVE); UROBILINOGEN,URINE NEGATIVE mg/dL (<2.0)
[2018-03-05] MEDS ORDERED: ALPRAZOLAM 0.5 MG TABLET PO ONE (03:15)
[2018-03-05] MEDS: LANSOPRAZOLE 30 MG TAB.RAP.DR PO SCH (05:23)
[2018-03-05] MEDS: METRONIDAZOLE 500 MG/NS RTU 100 ML IV SCH ×4 (05:23→23:29)
[2018-03-05 06:20] LABS: ABSOLUTE BASOPHILS # (AUTO) 0.1 10^3/uL (0.0-0.2); ABSOLUTE EOSINOPHILS # (AUTO) 0.3 10^3/uL (0.0-0.6); ABSOLUTE LYMPHOCYTES (AUTO) 3.8 10^3/uL (0.5-4.7); ABSOLUTE MONOCYTES (AUTO) 1.2 10^3/uL (0.1-1.4); ABSOLUTE NEUT (AUTO) 9.1 10^3/uL (1.7-8.2); BASOPHILS % (AUTO) 0.8 % (0-2); EOSINOPHILS % (AUTO) 1.8 % (0-6); HEMATOCRIT 47.6 % (37.9-51.0); LYMPHOCYTES % (AUTO) 26.3 % (13-45); MEAN CORPUSCULAR HEMOGLOBIN 31.6 pg (27.0-33.4); MEAN CORPUSCULAR HGB CONC 33.9 g/dL (32.0-36.0); MEAN CORPUSCULAR VOLUME 93 fl (80-97); MONOCYTES % (AUTO) 8.3 % (3-13); PLATELET COUNT 254 10^3/uL (150-450); RED BLOOD COUNT 5.11 10^6/uL (4.35-5.55); RED CELL DISTRIBUTION WIDTH 13.2 % (11.5-14.0); SEGMENTED NEUTROPHILS % (AUTO) 62.8 % (42-78); TOTAL CELLS COUNTED % (AUTO) 100 %; WHITE BLOOD COUNT 14.4 10^3/uL (4.0-10.5)
[2018-03-05 06:21] LABS: HEMOGLOBIN 16.1 g/dL (13.5-17.0)
[2018-03-05 06:34] LABS: ANION GAP 16 (5-19); BLOOD UREA NITROGEN 14 mg/dL (7-20); CALCIUM 8.9 mg/dL (8.4-10.2); CARBON DIOXIDE 22 mmol/L (22-30); CHLORIDE 107 mmol/L (98-107); GLUCOSE 120 mg/dL (75-110); POTASSIUM 4.7 mmol/L (3.6-5.0); SODIUM 144.9 mmol/L (137-145)
[2018-03-05] MEDS: ENOXAPARIN SODIUM INJ 40 MG/0.4 ML DISP.SYRIN SUBCUT SCH (09:55)
[2018-03-05] MEDS: CIPROFLOXACIN 400 MG/D5W RTU 400 MG/200 ML RTUPB IV SCH ×2 (09:55→22:27)
[2018-03-05] MEDS ORDERED: ONDANSETRON 4 MG TAB.RAPDIS PO PRN (11:07)
[2018-03-05] MEDS ORDERED: KETOROLAC TROMETHAMINE INJ/PF 30 MG/1 ML SDV IV PRN (11:21)
[2018-03-05] MEDS ORDERED: DICYCLOMINE HCL INJ 20 MG/2 ML AMPULE IM PRN (11:22)
--- NOTE | 2018-03-05 18:01 | Progress Note ---
Provider Note Provider Note: Reviewed microchip specialist's plan of care. Patient seen this morning during rounds, he had just finished vomiting after eating his breakfast. Patient denies fever chills, he appears to be uncomfortable and not well rested, but he is nontoxic- appearing. VSS. 1. Gastroenteritis: Continue Cipro and Flagyl IV. As needed Zofran p.o. and Bentyl IM. Switch to clear liquid diet. Continue IVF for now while patient is still actively vomiting.
[2018-03-05] MEDS ORDERED: DICYCLOMINE HCL 20 MG TABLET PO PRN (19:53)
[2018-03-05] MEDS ORDERED: ZOLPIDEM TARTRATE 5 MG TABLET PO PRN (23:17)
[2018-03-06] MEDS: LANSOPRAZOLE 30 MG TAB.RAP.DR PO SCH (05:41)
[2018-03-06] MEDS: METRONIDAZOLE 500 MG/NS RTU 100 ML IV SCH ×2 (05:42→11:23)
[2018-03-06] MEDS: CIPROFLOXACIN 400 MG/D5W RTU 400 MG/200 ML RTUPB IV SCH (10:08)
[2018-03-06] MEDS: ENOXAPARIN SODIUM INJ 40 MG/0.4 ML DISP.SYRIN SUBCUT SCH (10:08)
[2018-03-06 12:28] VITALS: BP 134/85
--- NOTE | 2018-03-07 11:59 | PDOC DISCHARGE SUMMARY ---
<MANDEEPROSA A - Last Filed: 03/07/18 11:52> General - Admit/Disc Date/PCP Admission Date/Primary Care Provider: 03/04/18 23:36 Discharge Date: 03/06/18 - Discharge Diagnosis (1) Abdominal pain Is this a current diagnosis for this admission?: Yes (2) Gastroenteritis Is this a current diagnosis for this admission?: Yes (3) Nausea and vomiting Is this a current diagnosis for this admission?: Yes (4) Leukocytosis Is this a current diagnosis for this admission?: Yes (5) Sepsis Is this a current diagnosis for this admission?: Yes - Additional Information Resuscitation Status: Full Code Discharge Diet: As Tolerated Discharge Activity: Activity As Tolerated Prescriptions: Ciprofloxacin HCl [Cipro 500 mg Tablet] 500 mg PO Q12 #6 tablet Dicyclomine HCl [Bentyl 20 mg Tablet] 20 mg PO Q6HP PRN #20 tablet PRN Reason: Abdominal Cramping Metronidazole [Flagyl 500 mg Tablet] 500 mg PO Q8 #9 tablet Ondansetron [Zofran Odt 4 mg Tablet] 4 mg PO Q6HP PRN #20 tab.rapdis PRN Reason: nausea Home Medications: Ciprofloxacin HCl [Cipro 500 mg Tablet] 500 mg PO Q12 #6 tablet 03/06/18 Dicyclomine HCl [Bentyl 20 mg Tablet] 20 mg PO Q6HP PRN #20 tablet 03/06/18 Metronidazole [Flagyl 500 mg Tablet] 500 mg PO Q8 #9 tablet 03/06/18 Ondansetron [Zofran Odt 4 mg Tablet] 4 mg PO Q6HP PRN #20 tab.rapdis 03/06/18 History of Present Illness History of Present Illness: ANNETTE GUERRERO is a 37 year old male patient with no significant medical history presents with chief complaint of nausea, vomiting and poor oral intake. Of note patient discharged from this hospital 4 days ago after he was treated for colitis with IV Cipro and Flagyl. Patient sent home with oral antibiotics but he could not tolerate the medication and continues to have vomiting. His initial blood workup shows leukocytosis of 20,000. No fever, chills, diarrhea, chest pain or urinary complaints. He endorsed generalized body aching. No headache dizziness or blurry vision. Hospital Course Hospital Course: The patient was admitted to [facility] for sepsis secondary to gastroenteritis. The patient was admitted to [facility] for the same complaint approximately 1 week ago, discharged home with p.o. Cipro and Flagyl. At the time of discharge the patient was able to tolerate p.o. intake and he denied abdominal pain. Upon returning home, the patient reported multiple episodes of vomiting with any p.o. intake, in addition to that multiple episodes of watery diarrhea. Within 4 days of discharge from [facility] patient returns to the emergency department for worsening symptoms. His initial lactate was 2.9, WBC 20, serum sodium 145, although his renal function was intact and the patient was afebrile. He was admitted to the hospitalist service for hypovolemia and dehydration secondary to persistent nausea and vomiting stemming from gastroenteritis. The patient was resuscitated with IVF in the emergency department, his lactate decreased 2.9->1.6 in 24 hours and his serum sodium returned to normal. Additionally, he was placed on IV Cipro and IV Flagyl. His leukocytosis improved WBC 20->14. Initially, the patient was not able to tolerate p.o. intake. The morning after his admission to [facility] he ate breakfast and promptly threw it up. Patient was then placed on a clear liquid diet with as needed Zofran and Bentyl. Within 24 hours, his vomiting has subsided and the patient no longer complained of abdominal pain, although he still endorsed 3-4 episodes of watery diarrhea per day. He was able to tolerate solid food without postprandial nausea or vomiting. Given the patient's age, benign medical history, and recent [id number] travel , it is possible that his gastroenteritis stems from a foodborne illness. The patient denied ever experiencing bloody stool and coupled with his vomiting, acute onset of symptoms and less than impressive abdominal exam, the diagnosis of inflammatory bowel disease is not likely. The patient was discharged home with a prescription for as needed p.o. Zofran and Bentyl. P.o. fluid intake was encouraged. The patient was advised against taking Imodium or Lomotil, which she reported taking at home. The patient is scheduled for a follow-up visit with the [facility] on 03-08-2018. Physical Exam Vital Signs: Temp Pulse Resp BP Pulse Ox 98.3 F 67 16 134/85 H 97 03/06/18 13:28 03/06/18 13:28 03/06/18 13:28 03/06/18 13:28 03/06/18 13:28 Intake & Output 03/06/18 03/07/18 03/08/18 06:59 06:59 06:59 Intake Total 4632 Balance 4632 Weight 128.4 kg Results Laboratory Results: 03/05/18 05:55 03/05/18 05:55 Impressions: Abdomen X-Ray 03/04/18 22:04 IMPRESSION: NO RADIOGRAPHIC EVIDENCE FOR ACUTE ABDOMINAL DISEASE. Status: Imported from PACS Qualifiers - * PATIENT BEING DISCHARGED WITH ANY OF THE FOLLOWING DIAGNOSIS: No Plan Discharge Plan: Discharge home with prescription for Bentyl and Zofran. Encourage p.o. fluids. Follow-up appointment at [facility] on 03/08/2018 Time Spent: Less than 30 Minutes <KIM GONZALEZ - Last Filed: 03/07/18 15:26> General - Admit/Disc Date/PCP Admission Date/Primary Care Provider: 03/04/18 23:36 History of Present Illness History of Present Illness: ANNETTE GUERRERO is a 37 year old male Physical Exam Vital Signs: Temp Pulse Resp BP Pulse Ox 98.3 F 67 16 134/85 H 97 03/06/18 13:28 03/06/18 13:28 03/06/18 13:28 03/06/18 13:28 03/06/18 13:28 Intake & Output 03/06/18 03/07/18 03/08/18 06:59 06:59 06:59 Intake Total 4632 Balance 4632 Weight 128.4 kg Results Laboratory Results: 03/05/18 05:55 03/05/18 05:55 Impressions: Abdomen X-Ray 03/04/18 22:04 IMPRESSION: NO RADIOGRAPHIC EVIDENCE FOR ACUTE ABDOMINAL DISEASE. Plan Discharge Plan: Co signing the note for Rosa Harmon NP.
== END 2018-03-06 14:06 | disposition home or self-care (01) | DRG 872 ==
LOC: ER 21:08 → EH 23:36 → 4N 03-05 01:53
PROVIDERS: ADMIT Internal Medicine; ATTEND Internal Medicine
DX: A41.9 Sepsis, unspecified organism (principal); A09 Infectious gastroenteritis and colitis, unspecified; E86.0 Dehydration; E86.1 Hypovolemia; D72.829 Elevated white blood cell count, unspecified; Z88.6 Allergy status to analgesic agent; Z82.49 Family history of ischemic heart disease and other diseases of the circulatory system; Z83.3 Family history of diabetes mellitus
CPT/HCPCS: 36415; 74019; 80048; 80053; 81001; 83605; 85025; 87040; 96361; 96374; 99285; J0500; J0696; J0744; J1650; J1885; J2405; J7030; S0119

== ENCOUNTER 2018-07-22 00:52 | Emergency (ER) | payer OTHER ==
--- NOTE | 2018-07-22 01:43 | RADIOLOGY REPORT (SQ) ---
EXAM DESCRIPTION: XR SHOULDER 2 OR MORE VIEWS COMPLETED DATE/TME: 07/22/2018 00:00 CLINICAL HISTORY: 38 years, Male, injury COMPARISON: None. FINDINGS: 3 views of the left shoulder. Acute moderately displaced fracture involving the surgical neck of the proximal left humerus. No glenohumeral dislocation. No acute abnormalities of visualized left hemithorax. IMPRESSION: 1. Acute minimally displaced fracture involving the surgical neck of the proximal left humerus. 2010 [employer]- All Rights Reserved
[2018-07-22] MEDS ORDERED: LIDOCAINE 5% (700 MG) TRANSDERMAL ADH..PATCH TP ONE (02:18)
[2018-07-22] MEDS ORDERED: ACETAMINOPHEN 325 MG TABLET PO ONE (02:18)
[2018-07-22] MEDS ORDERED: KETOROLAC TROMETHAMINE 60 MG/2 ML SDV IM ONE (02:18)
[2018-07-22] MEDS ORDERED: HYDROMORPHONE HCL INJ/PF 2 MG/ML AMPULE IM ONE (02:18)
[2018-07-22] MEDS ORDERED: ONDANSETRON 4 MG TAB.RAPDIS PO ONE (02:22)
[2018-07-22] MEDS ORDERED: ONDANSETRON ODT 4 MG TAB (6 TAB/ER DISP) PO PRN (02:22)
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
[2018-07-22 05:43] VITALS: BP 135/75
== END 2018-07-22 02:56 | disposition home or self-care (01) ==
LOC: ER 00:52
DX: S42.212A Unspecified displaced fracture of surgical neck of left humerus, initial encounter for closed fracture (principal); M25.512 Pain in left shoulder; M79.602 Pain in left arm; R00.0 Tachycardia, unspecified; V28.4XXA Motorcycle driver injured in noncollision transport accident in traffic accident, initial encounter
CPT/HCPCS: 99283; 96372; 73030; J1885; S0119; J1170

== ENCOUNTER 2018-08-05 20:37 | Emergency (ER) | payer OTHER ==
[2018-08-05] MEDS ORDERED: HYDROMORPHONE HCL INJ/PF 2 MG/ML AMPULE IV ONE ×2 (21:43→23:00)
[2018-08-05] MEDS ORDERED: ONDANSETRON HCL INJ/PF 4 MG/2 ML SDV IV ONE (21:43)
--- NOTE | 2018-08-05 22:41 | RADIOLOGY REPORT (SQ) ---
Left shoulder three views Compared to 07/22/2018. HISTORY: Left shoulder fracture, follow-up. FINDINGS: There is a proximal humeral mildly displaced fracture again noted, involving the surgical neck. Similar to the prior study. Acromioclavicular joint is intact. The scapula appears intact. Clavicle appears intact. IMPRESSION: Left proximal humerus fracture, similar to prior study.
[2018-08-05] MEDS ORDERED: KETOROLAC TROMETHAMINE INJ/PF 30 MG/1 ML SDV IV ONE (23:01)
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
[2018-08-06 00:36] VITALS: BP 129/90
== END 2018-08-06 00:36 | disposition home or self-care (01) ==
LOC: ER 20:37
DX: M62.838 Other muscle spasm (principal); S42.202S Unspecified fracture of upper end of left humerus, sequela; X58.XXXS Exposure to other specified factors, sequela; Z87.442 Personal history of urinary calculi
CPT/HCPCS: 96376; 99283; 96374; 96375; 73030; J1885; J1170; J2405

== ENCOUNTER 2018-09-29 00:16 | Emergency (ER) | payer OTHER ==
--- NOTE | 2018-09-29 00:59 | RADIOLOGY REPORT (SQ) ---
EXAM DESCRIPTION: XR SHOULDER 2 OR MORE VIEWS COMPLETED DATE/TME: 09/29/2018 00:23 CLINICAL HISTORY: 38 years, Male, pain COMPARISON: 08/05/2018 left shoulder NUMBER OF VIEWS: 3 TECHNIQUE: 3 view left shoulder LIMITATIONS: None. FINDINGS: Osteopenia. Mildly displaced, comminuted fracture through the proximal humeral neck. A small avulsed fracture fragment is noted medially. This was also present previously. Equivocal/minimal evidence of bony healing. No dislocation. Calcified granuloma in the left upper lobe. The acromial clavicular joint is preserved. IMPRESSION: Mildly displaced and comminuted fracture of the proximal humeral neck, similar to the prior exam copyright 2010 [employer]- All Rights Reserved
[2018-09-29] MEDS ORDERED: ACETAMINOPHEN 325 MG TABLET PO ONE (01:22)
[2018-09-29] MEDS ORDERED: HYDROMORPHONE HCL INJ/PF 2 MG/ML AMPULE IV ONE ×3 (01:22→03:00)
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
[2018-09-29 04:03] VITALS: BP 175/101
== END 2018-09-29 04:03 | disposition home or self-care (01) ==
LOC: ER 00:16
DX: S42.352G Displaced comminuted fracture of shaft of humerus, left arm, subsequent encounter for fracture with delayed healing (principal); R00.0 Tachycardia, unspecified; R61 Generalized hyperhidrosis; R11.0 Nausea; X58.XXXD Exposure to other specified factors, subsequent encounter; F17.200 Nicotine dependence, unspecified, uncomplicated; Z87.442 Personal history of urinary calculi; Z88.6 Allergy status to analgesic agent
CPT/HCPCS: 96376; 99283; 96374; 73030; L3650; J1170

== ENCOUNTER 2018-11-07 21:21 | Emergency (ER) | payer BC, OTHER ==
[2018-11-07 23:09] LABS: ABSOLUTE BASOPHILS # (AUTO) 0.2 10^3/uL (0.0-0.2); ABSOLUTE EOSINOPHILS # (AUTO) 0.2 10^3/uL (0.0-0.6); ABSOLUTE LYMPHOCYTES (AUTO) 3.5 10^3/uL (0.5-4.7); ABSOLUTE MONOCYTES (AUTO) 1.1 10^3/uL (0.1-1.4); ABSOLUTE NEUT (AUTO) 12.4 10^3/uL (1.7-8.2); BASOPHILS % (AUTO) 1.4 % (0-2); HEMATOCRIT 51.5 % (37.9-51.0); HEMOGLOBIN 17.5 g/dL (13.5-17.0); MEAN CORPUSCULAR HEMOGLOBIN 31.1 pg (27.0-33.4); MEAN CORPUSCULAR HGB CONC 33.9 g/dL (32.0-36.0); MEAN CORPUSCULAR VOLUME 92 fl (80-97); MONOCYTES % (AUTO) 6.4 % (3-13); PLATELET COUNT 318 10^3/uL (150-450); RED BLOOD COUNT 5.61 10^6/uL (4.35-5.55); RED CELL DISTRIBUTION WIDTH 13.6 % (11.5-14.0); SEGMENTED NEUTROPHILS % (AUTO) 71.2 % (42-78); TOTAL CELLS COUNTED % (AUTO) 100 %; WHITE BLOOD COUNT 17.5 10^3/uL (4.0-10.5)
[2018-11-07 23:38] LABS: ALANINE AMINOTRANSFERASE 50 U/L (21-72); ALBUMIN 5.1 g/dL (3.5-5.0); ALKALINE PHOSPHATASE 83 U/L (38-126); ANION GAP 9 (5-19); ASPARTATE AMINO TRANSFERASE 29 U/L (17-59); BILIRUBIN,DIRECT 0.2 mg/dL (0.0-0.4); BILIRUBIN,TOTAL 0.4 mg/dL (0.2-1.3); BLOOD UREA NITROGEN 20 mg/dL (7-20); CALCIUM 10.1 mg/dL (8.4-10.2); CARBON DIOXIDE 29 mmol/L (22-30); CHLORIDE 103 mmol/L (98-107); GLUCOSE 108 mg/dL (75-110); LIPASE 157.5 U/L (23-300); POTASSIUM 4.7 mmol/L (3.6-5.0); SODIUM 140.9 mmol/L (137-145); TOTAL PROTEIN 8.4 g/dL (6.3-8.2)
[2018-11-08 00:12] LABS: APPEARANCE,URINE SLIGHTLY-CLOUDY; BILIRUBIN,URINE NEGATIVE (NEGATIVE); COLOR,URINE YELLOW; GLUCOSE, URINE NEGATIVE (NEGATIVE); KETONES,URINE NEGATIVE (NEGATIVE); LEUKOCYTE ESTERASE,URINE NEGATIVE (NEGATIVE); NITRITE,URINE NEGATIVE (NEGATIVE); PROTEIN,URINE 30 mg/dL (NEGATIVE); URINE SPECIFIC GRAVITY 1.019
--- NOTE | 2018-11-08 01:02 | ER Document Report ---
ED GI/ - General Chief Complaint: Possible Kidney Stone Stated Complaint: FLANK PAIN Time Seen by Provider: 11/08/18 01:02 Information source: Patient Notes: Patient is a 38-year-old male with a previous history of ureteral stones who presents with left flank pain for the past day. Patient reports pain began in the left upper back but then radiated down to the left lower flank, associated with nausea but no vomiting, denies fevers or chills. He does report that it was difficult to urinate but denies dysuria or hematuria. Symptoms are identical to his previous history of a stone "3-4 years ago" that required lithotripsy. TRAVEL OUTSIDE OF THE [place] IN LAST 30 DAYS: No - HPI Patient complains to provider of: Abdominal pain, Flank pain Onset: Yesterday Timing/Duration: Sudden Quality of pain: Achy, Throbbing Severity at maximum: Severe Severity in ED: Moderate Pain Level: 3 Location: Left flank Sexual history: Inactive Associated symptoms: Nausea, Vomiting Exacerbated by: Movement Relieved by: Denies Similar symptoms previously: Yes Recently seen / treated by doctor: No - Related Data Allergies/Adverse Reactions: oxycodone HCl [From OxyContin] Allergy (Verified 03/04/18 21:11) Past Medical History - General Information source: Patient - Social History Smoking Status: Current Every Day Smoker Chew tobacco use (# tins/day): No Frequency of alcohol use: None Drug Abuse: None Lives with: Friend Family History: Reviewed & Not Pertinent, DM, Hypertension Patient has suicidal ideation: No Patient has homicidal ideation: No - Past Medical History Cardiac Medical History: Reports: None Pulmonary Medical History: Reports: None EENT Medical History: Reports: None Neurological Medical History: Reports: None Endocrine Medical History: Reports: None Renal/ Medical History: Reports: None, Hx Kidney Stones. Denies: Hx P eritoneal Dialysis Malignancy Medical History: Reports None GI Medical History: Reports: None Musculoskeletal Medical History: Reports None Skin Medical History: Reports None Psychiatric Medical History: Reports: None Traumatic Medical History: Reports: None Infectious Medical History: Reports: None Surgical Hx: Negative Past Surgical History: Reports: None, Hx Orthopedic Surgery - Rt knee - Immunizations Immunizations up to date: Yes Hx Diphtheria, Pertussis, Tetanus Vaccination: Yes Review of Systems - Review of Systems Constitutional: No symptoms reported EENT: No symptoms reported Cardiovascular: No symptoms reported Respiratory: No symptoms reported Gastrointestinal: See HPI, Nausea, Vomiting Genitourinary: See HPI, Flank pain Male Genitourinary: No symptoms reported Musculoskeletal: No symptoms reported Skin: No symptoms reported Hematologic/Lymphatic: No symptoms reported Neurological/Psychological: No symptoms reported -: Yes All other systems reviewed and negative Physical Exam - Vital signs Vitals: Temp Pulse Resp BP Pulse Ox 98.2 F 97 20 161/118 H 97 11/07/18 21:48 11/07/18 21:48 11/07/18 21:48 11/07/18 21:48 11/07/18 21:48 Interpretation: Normal - Notes Notes: Patient appears uncomfortable but in no acute distress - General General appearance: Appears well, Alert - HEENT Head: Normocephalic, Atraumatic Eyes: Normal Pupils: PERRL - Respiratory Respiratory status: No respiratory distress Chest status: Nontender Breath sounds: Normal Chest palpation: Normal - Cardiovascular Rhythm: Regular Heart sounds: Normal auscultation Murmur: No - Abdominal Inspection: Normal Distension: No distension Bowel sounds: Normal Tenderness: Other - Left CVA tenderness Organomegaly: No organomegaly - Rectal Notes: Deferred - Genitourinary Notes: Deferred - Back Back: Normal, Nontender - Extremities General upper extremity: Normal inspection, Nontender, Normal color, Normal ROM, Normal temperature General lower extremity: Normal inspection, Nontender, Normal color, Normal ROM, Normal temperature, Normal weight bearing. No: Joe's sign - Neurological Neuro grossly intact: Yes Cognition: Normal Orientation: AAOx4 Linda Coma Scale Eye Opening: Spontaneous Brave Coma Scale Verbal: Oriented Linda Coma Scale Motor: Obeys Commands Brave Coma Scale Total: 15 Speech: Normal Motor strength normal: LUE, RUE, LLE, RLE Sensory: Normal - Psychological Associated symptoms: Normal affect, Normal mood - Skin Skin Temperature: Warm Skin Moisture: Dry Skin Color: Normal Course - Re-evaluation Re-evalutation: 11/08/18 04:07 Initial workup shows slightly elevated white blood cell count, blood and urinalysis without evidence of UTI, borderline normal renal function. CT scan shows a 6.3 mm renal stone at the left proximal ureter, mild associated hydronephrosis. Given no evidence of infected or obstructed stone, patient will be given conventional treatment and will follow up with urology. He will be discharged home with return precautions, voices both understanding and agreeing with the plan. - Vital Signs Vital signs: Temp Pulse Resp BP Pulse Ox 98.2 F 97 20 161/118 H 97 11/07/18 21:48 11/07/18 21:48 11/07/18 21:48 11/07/18 21:48 11/07/18 21:48 - Laboratory Result Diagrams: 11/07/18 22:55 11/07/18 22:55 Laboratory results interpreted by me: 11/07/18 11/07/18 11/07/18 22:55 22:55 23:45 WBC 17.5 H RBC 5.61 H Hgb 17.5 H Hct 51.5 H Absolute Neutrophils 12.4 H Total Protein 8.4 H Albumin 5.1 H Urine Protein 30 H Urine Blood LARGE H Urine Urobilinogen 2.0 H - Diagnostic Test Radiology reviewed: Image reviewed, Reports reviewed Discharge - Discharge Clinical Impression: Ureterolithiasis Condition: Good Disposition: HOME, SELF-CARE Instructions: Kidney Stone ([facility]) Additional Instructions: Please follow-up with urologist as instructed. Return to the emergency department if you experience the inability to urinate, high fevers, or have any other concerning symptom. Prescriptions: Hydrocodone/Acetaminophen [[place] 5-325 Tablet] 1 each PO Q6H PRN #20 tablet PRN Reason: For Pain Ondansetron [Zofran Odt 4 mg Tablet] 1 tab PO Q8H PRN #30 tab.rapdis PRN Reason: Tamsulosin HCl [Flomax 0.4 mg Cap.sr] 0.4 mg PO DAILY #10 cap.sr.24h Referrals: TEJA MATHEWS MD [[facility]] - Follow up as needed Print Language: Belgian
[2018-11-08] MEDS ORDERED: KETOROLAC TROMETHAMINE INJ/PF 30 MG/1 ML SDV IV ONE (01:17)
[2018-11-08] MEDS ORDERED: NORMAL SALINE 1000 ML 1,000 ML IV ONE (02:21)
[2018-11-08] MEDS ORDERED: ONDANSETRON HCL INJ/PF 4 MG/2 ML SDV IV ONE (02:22)
--- NOTE | 2018-11-08 02:56 | RADIOLOGY REPORT (SQ) ---
EXAM DESCRIPTION: CT ABDOMEN PELVIS WITHOUT IV CONTRAST COMPLETED DATE/TME: 11/08/2018 02:19 CLINICAL HISTORY: 38 years, Male, Flank pain COMPARISON: 02/25/2018 CT TECHNIQUE: [id number] Images stored on PACS. All CT scanners at this facility use dose modulation, iterative reconstruction, and/or weight based dosing when appropriate to reduce radiation dose to as low as reasonably achievable (ALARA). [facility]: Dose Right [facility]: CareDose [facility]: Dose Right [facility]: Teradose 4D [facility]: [employer] LIMITATIONS: None. FINDINGS: Limited evaluation of the lung bases is unremarkable. Osseous structures are grossly intact. Suspected fatty infiltrative change to the liver. The spleen, adrenal glands, pancreas, right kidney are unremarkable. The gallbladder is present. Moderate left-sided hydronephrosis with proximal hydroureter, secondary to an approximately 6.3 mm proximal left ureteral calculus. Mild surrounding inflammatory change. No gross evidence for bowel obstruction. No free air or free fluid. Normal appendix. IMPRESSION: Moderate left-sided hydronephrosis and hydroureter secondary to a proximal 6.3 mm left ureteral calculus TECHNICAL DOCUMENTATION: Quality ID # [id number]: Final reports with documentation of one or more dose reduction techniques (e.g., Automated exposure control, adjustment of the mA and/or kV according to patient size, use of iterative reconstruction technique) copyright 2011 [employer]- All Rights Reserved
[2018-11-08] MEDS ORDERED: LEVOFLOXACIN 500 MG TABLET PO ONE (04:08)
[2018-11-08] MEDS ORDERED: HYDROCODONE/ACETAMINOPHEN 5-325 MG TABLET PO ONE (04:09)
[2018-11-08 04:46] VITALS: BP 129/84
== END 2018-11-08 04:46 | disposition home or self-care (01) ==
LOC: ER 21:21
DX: N20.1 Calculus of ureter (principal); R10.9 Unspecified abdominal pain; M54.6 Pain in thoracic spine; R10.32 Left lower quadrant pain; R11.2 Nausea with vomiting, unspecified; F17.200 Nicotine dependence, unspecified, uncomplicated
CPT/HCPCS: 99284; 96361; 96374; 96375; 36415; 83690; 85025; 80053; 81001; 74176; J1885; J2405; J7030

== ENCOUNTER 2018-11-24 05:37 | Emergency (ER) | payer BC ==
[2018-11-24 06:03] VITALS: BP 151/97
== END 2018-11-24 07:45 | disposition left against medical advice (07) ==
LOC: ER 05:37
DX: Z53.21 Procedure and treatment not carried out due to patient leaving prior to being seen by health care provider (principal)

== ENCOUNTER 2019-06-10 19:01 | Emergency (ER) | payer SELFPAY ==
[2019-06-10] MEDS ORDERED: NORMAL SALINE 500 ML IV ONE (19:22)
[2019-06-10] MEDS ORDERED: KETOROLAC TROMETHAMINE INJ/PF 30 MG/1 ML SDV IV ONE (19:22)
[2019-06-10] MEDS ORDERED: ONDANSETRON HCL INJ/PF 4 MG/2 ML SDV IV ONE (19:22)
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
[2019-06-10 20:01] LABS: ABSOLUTE BASOPHILS # (AUTO) 0.1 10^3/uL (0.0-0.2); ABSOLUTE EOSINOPHILS # (AUTO) 0.2 10^3/uL (0.0-0.6); ABSOLUTE LYMPHOCYTES (AUTO) 2.9 10^3/uL (0.5-4.7); ABSOLUTE MONOCYTES (AUTO) 0.8 10^3/uL (0.1-1.4); EOSINOPHILS % (AUTO) 2.1 % (0-6); HEMATOCRIT 47.3 % (37.9-51.0); LYMPHOCYTES % (AUTO) 32.6 % (13-45); MEAN CORPUSCULAR HEMOGLOBIN 31.3 pg (27.0-33.4); MEAN CORPUSCULAR HGB CONC 33.8 g/dL (32.0-36.0); MEAN CORPUSCULAR VOLUME 93 fl (80-97); MONOCYTES % (AUTO) 8.7 % (3-13); PLATELET COUNT 200 10^3/uL (150-450); RED CELL DISTRIBUTION WIDTH 13.3 % (11.5-14.0); SEGMENTED NEUTROPHILS % (AUTO) 55.6 % (42-78); TOTAL CELLS COUNTED % (AUTO) 100 %
[2019-06-10 20:22] LABS: ALBUMIN 4.1 g/dL (3.5-5.0); ALKALINE PHOSPHATASE 64 U/L (38-126); ANION GAP 10 (5-19); ASPARTATE AMINO TRANSFERASE 23 U/L (17-59); BILIRUBIN,DIRECT 0.2 mg/dL (0.0-0.4); BILIRUBIN,TOTAL 0.5 mg/dL (0.2-1.3); BLOOD UREA NITROGEN 17 mg/dL (7-20); CALCIUM 9.4 mg/dL (8.4-10.2); CARBON DIOXIDE 26 mmol/L (22-30); CHLORIDE 104 mmol/L (98-107); GLUCOSE 128 mg/dL (75-110); POTASSIUM 4.3 mmol/L (3.6-5.0); TOTAL PROTEIN 6.7 g/dL (6.3-8.2)
[2019-06-10] MEDS ORDERED: HYDROMORPHONE HCL INJ/PF 2 MG/ML AMPULE IV ONE ×2 (20:54→21:36)
--- NOTE | 2019-06-10 20:59 | ER Document Report ---
ED GI/ - General Chief Complaint: Abdominal Pain Stated Complaint: LOWER ABDOMINAL PAIN Time Seen by Provider: 06/10/19 19:16 Mode of Arrival: Ambulatory Notes: Patient is a 38-year-old male that comes emergency department for chief complaint of left flank pain. Symptoms started Tuesday, were milder, became much more severe today with nausea and sharp pain mainly now in his left abdomen. He denies current flank pain. He denies vomiting or fever. Past medical history of kidney stones, most recent one was kidney stone he passed in October that was over 6 mm. He reports history of orthopedic surgery, denies any medical history otherwise. Denies history of recreational drugs. TRAVEL OUTSIDE OF THE [place] IN LAST 30 DAYS: No - Related Data Allergies/Adverse Reactions: oxycodone [From OxyContin] Allergy (Verified 06/10/19 19:15) Past Medical History - General Information source: Patient - Social History Smoking Status: Current Every Day Smoker Frequency of alcohol use: Occasional Drug Abuse: None Lives with: Family Family History: Reviewed & Not Pertinent, DM, Hypertension Patient has suicidal ideation: No Patient has homicidal ideation: No Renal/ Medical History: Reports: Hx Kidney Stones. Denies: Hx Peritoneal Dialysis Past Surgical History: Reports: Hx Orthopedic Surgery - Rt knee - Immunizations Immunizations up to date: Yes Hx Diphtheria, Pertussis, Tetanus Vaccination: Yes Review of Systems - Review of Systems Constitutional: No symptoms reported EENT: No symptoms reported Cardiovascular: No symptoms reported Respiratory: No symptoms reported Gastrointestinal: See HPI Genitourinary: See HPI Male Genitourinary: No symptoms reported Musculoskeletal: No symptoms reported Skin: No symptoms reported Hematologic/Lymphatic: No symptoms reported Neurological/Psychological: No symptoms reported Physical Exam - Vital signs Vitals: Temp Pulse Resp BP Pulse Ox 97.8 F 81 20 132/92 H 96 06/10/19 19:09 06/10/19 19:09 06/10/19 19:09 06/10/19 19:09 06/10/19 19:09 - Notes Notes: GENERAL: Patient is restless, appears to be uncomfortable, however he is not in severe distress HEAD: Normocephalic, atraumatic. EYES: Pupils equal, round, and reactive to light. Extraocular movements intact. ENT: Oral mucosa moist, tongue midline. Oropharynx unremarkable. Airway patent. NECK: Full range of motion. Supple. Trachea midline. LUNGS: Clear to auscultation bilaterally, no wheezes, rales, or rhonchi. No resp iratory distress. HEART: Regular rate and rhythm. No murmur ABDOMEN: There is some generalized tenderness in the mid to left lower abdomen but no guarding. Remaining abdomen is soft and benign. GENITOURINARY: No swelling or concerning a normality noted. EXTREMITIES: Moves all 4 extremities spontaneously. No edema, normal radial and dorsalis pedis pulses bilaterally. No cyanosis. BACK: Left-sided CVA tenderness is present. Right side unremarkable. No midline tenderness. No saddle anesthesia. Moves all extremities and full range of motion. NEUROLOGICAL: Alert and oriented x3. Normal speech. Cranial nerves II through XII grossly intact. SKIN: Warm, dry, normal turgor. No rashes or lesions noted. Course - Re-evaluation Re-evalutation: Patient has already received Toradol and is still uncomfortable. He does have some left-sided CVA tenderness. His abdomen shows some left-sided generalized tenderness but no guarding. His vital signs are unremarkable. CBC, chemistry including renal functioning are both normal. Urinalysis shows a lot of hematuria but does not show an infection. I did review CAT scan imaging from triage, this shows 10 mm stone in the renal pelvis but does not show a current obstructing ureterolithiasis. Previous 6.3 mm ureterolithiasis is gone. Based on patient's hydronephrosis, CVA tenderness, hematuria, I suspect patient just passed a stone. Discussed with Dr. Parker. Patient is medicated twice more and after this symptoms completely resolved. Patient with no current complaints on reevaluation. Discussed urology follow-up because of the 10 mm stone, discussed return precautions in detail. Patient and state understanding and agreement with plan. - Vital Signs Vital signs: Temp Pulse Resp BP Pulse Ox 97.8 F 70 16 111/54 L 92 06/11/19 00:18 06/11/19 00:18 06/11/19 00:18 06/11/19 00:18 06/11/19 00:18 - Laboratory Result Diagrams: 06/10/19 19:53 06/10/19 19:53 Laboratory results interpreted by me: 06/10/19 06/10/19 19:53 20:55 Glucose 128 H Urine Protein 100 H Urine Blood LARGE H Discharge - Discharge Clinical Impression: Left flank pain Hematuria Qualifiers: Hematuria type: unspecified type Qualified Code(s): R31.9 - Hematuria, unspecified Abdominal pain Qualifiers: Abdominal location: left lower quadrant Qualified Code(s): R10.32 - Left lower quadrant pain Condition: Stable Disposition: HOME, SELF-CARE Additional Instructions: Your imaging shows a 10 mm kidney stone that is near the bottom of the left kidney but is not passing at this time. Based on your symptoms, blood in the urine, I actually believe you passed a different stone that caused your symptoms today. I do recommend you take the pain medication, nausea medication as prescribed if needed, follow-up with urology as well for management of this remaining large stone (call one of the listed referrals below to set this up). Return if you worsen including vomiting, fever, severe worsening pain, or any other concerning symptoms. [facility] [address] [place], [place] [id number] [facility] [address] [place], [place] [address] Eddy Salinas MD Doctor in [place], [place] Address: [facility] [address] [place] [address] Prescriptions: Ibuprofen [Motrin 600 mg Tablet] 600 mg PO Q6HP PRN #30 tablet PRN Reason: Morphine Sulfate [Morphine Ir 15 Mg Tablet] 15 mg PO TID PRN #12 tablet PRN Reason: Promethazine HCl [Phenergan 25 mg Tablet] 25 mg PO Q6H PRN #20 tablet PRN Reason: Forms: Return to Work
--- NOTE | 2019-06-10 21:05 | RADIOLOGY REPORT (SQ) ---
EXAM DESCRIPTION: CT ABDOMEN PELVIS WITHOUT IV CONTRAST COMPLETED DATE/TME: 06/10/2019 19:21 CLINICAL HISTORY: Left flank pain history of kidney stones COMPARISON: November 08, 2018 TECHNIQUE: Contiguous axial images of the abdomen and pelvis were obtained followed by reconstruction images. This exam was performed according to our departmental dose-optimization program, which includes automated exposure control, adjustment of the mA and/or kV according to patient size and/or use of iterative reconstruction technique. FINDINGS: Linear opacities within the lungs may represent scar versus subsegmental atelectasis. There is dilatation of the left renal pelvis and proximal ureter. There is a 1 cm stone within the left renal pelvis. Prior examination demonstrated the stone at the level of the left proximal ureter. Calcification within the pelvis compatible with a phlebolith. There are prostatic calcifications. There is atherosclerosis. The liver, spleen, pancreas and right kidney are within normal limits. The gallbladder is unremarkable by CT criteria. Adrenal glands are within normal limits. Aorta is of normal caliber and tapering. There is no free fluid in the abdomen or pelvis. There is no bowel obstruction. The appendix is within normal limits. There is no pericecal inflammation. IMPRESSION: Left-sided hydronephrosis. 1 cm stone at the renal pelvis not located at the area of caliber transition of the collecting system.
[2019-06-10 21:13] LABS: APPEARANCE,URINE SLIGHTLY-CLOUDY; BILIRUBIN,URINE NEGATIVE (NEGATIVE); COLOR,URINE YELLOW; GLUCOSE, URINE NEGATIVE (NEGATIVE); KETONES,URINE NEGATIVE (NEGATIVE); LEUKOCYTE ESTERASE,URINE NEGATIVE (NEGATIVE); NITRITE,URINE NEGATIVE (NEGATIVE); PROTEIN,URINE 100 mg/dL (NEGATIVE); UROBILINOGEN,URINE NEGATIVE mg/dL (<2.0)
[2019-06-10] MEDS ORDERED: DIPHENHYDRAMINE HCL 50 MG/ML VIAL IV ONE (22:37)
[2019-06-10] MEDS ORDERED: HYDROCODONE/ACETAMINOPHEN 5-325 MG (6 TAB/ER DISP) PO PRN (23:39)
[2019-06-11 00:22] VITALS: BP 111/54
== END 2019-06-11 00:22 | disposition home or self-care (01) ==
LOC: ER 19:01
DX: R10.32 Left lower quadrant pain (principal); R10.30 Lower abdominal pain, unspecified; R31.9 Hematuria, unspecified; F17.200 Nicotine dependence, unspecified, uncomplicated; Z88.6 Allergy status to analgesic agent; Z87.442 Personal history of urinary calculi
CPT/HCPCS: 36415; 85025; 80053; 81001; 74176; J1200; J1885; J1170; J2405; J7040; 96361; 96374; 96375; 96376; 99284

== ENCOUNTER 2019-12-07 18:54 | Emergency (ER) | payer SELFPAY ==
[2019-12-07 18:58] VITALS: BP 153/93
--- NOTE | 2019-12-07 19:14 | ER Document Report ---
HPI - HPI Time Seen by Provider: 12/07/19 19:04 Pain Level: 0 Notes: Patient is a 39-year-old male no significant past medical history who presents complaining of a generalized rash that started showing up yesterday. Patient states that the rash does itch on occasion. He does not have any pain associated. He is not aware of any new chemicals, detergents, soaps, foods, medicines, or insect bite. He is otherwise feeling well. He is eating and drinking without difficulty. He is urinating normally and having normal bowel movements. Denies any headache, fever, neck pain, URI, sore throat, chest pain, palpitations, syncope, cough, shortness of breath, wheeze, dyspnea, abdominal pain, nausea/vomiting/diarrhea, urinary retention, dysuria, hematuria, loss of control of bowel or bladder, numbness/tingling, saddle anesthesia, muscle paralysis/weakness. - ROS Systems Reviewed and Negative: Yes All other systems reviewed and negative Past Medical History - Social History Smoking Status: Current Every Day Smoker Chew tobacco use (# tins/day): No Frequency of alcohol use: Social Drug Abuse: None Family History: Reviewed & Not Pertinent, DM, Hypertension Patient has suicidal ideation: No Patient has homicidal ideation: No Renal/ Medical History: Reports: Hx Kidney Stones. Denies: Hx Peritoneal Dialysis Past Surgical History: Reports: Hx Orthopedic Surgery - Rt knee - Immunizations Immunizations up to date: Yes Hx Diphtheria, Pertussis, Tetanus Vaccination: Yes Vertical Provider Document - CONSTITUTIONAL Agree With Documented VS: Yes Notes: PHYSICAL EXAMINATION: GENERAL: Well-appearing, well-nourished and in no acute distress. HEAD: Atraumatic, normocephalic. EYES: Pupils equal round and reactive to light, extraocular movements intact, sclera anicteric, conjunctiva are normal. ENT: EAC clear b/l. TM's intact b/l without erythema, fluid, or perforation. Nares patent and without discharge. oropharynx clear without exudates. No tonsilar hypertrophy or erythema. Moist mucous membranes. No sinus tenderness. NECK: Normal range of motion, supple without lymphadenopathy LUNGS: Breath sounds clear to auscultation bilaterally and equal. No wheezes rales or rhonchi. HEART: Regular rate and rhythm without murmurs, rubs, gallops. ABDOMEN: Soft, nontender, nondistended abdomen. No guarding, no rebound. No masses appreciated. Normal bowel sounds present. No CVA tenderness bilaterally. Musculoskeletal: FROM to passive/active. Strength 5+/5. Extremities: No cyanosis, clubbing, or edema b/l. Peripheral pulses 2+. Capillary refill less than 3 seconds. NEUROLOGICAL: Cranial nerves grossly intact. Normal speech, normal gait. Normal sensory, motor exams PSYCH: Normal mood, normal affect. SKIN: There is a generalized mostly macular erythemic rash noted primarily to the trunk, but does involve the extremities as well. This is nontender to palpation and it does kylie. Some are hive appearing. - INFECTION CONTROL TRAVEL OUTSIDE OF THE [place] IN LAST 30 DAYS: No Course - Re-evaluation Re-evalutation: 12/07/19 19:12 Patient is an afebrile, well-hydrated, 39-year-old male who presents with a nonspecific skin rash. Vitals are acceptable without significant tachycardia, tachypnea, hypoxia. PE is otherwise unremarkable. Patient is nontoxic-appe aring and is tolerating p.o. without difficulty. Low suspicion for any necrotizing fasciitis, SJS, SSS, drug reaction, sepsis, meningitis, syphilis, Lyme disease, Vado spotted fever, or other systemic emergent condition at this time. Patient aware that condition can change from initial presentation and he needs to monitor symptoms closely and seek medical attention with any acute changes. Recheck with your PCM in 2 to 3 days. Consider consult with dermatology. Return to the ED with any other worsening/concerning symptoms as reviewed. Patient is in agreement. - Vital Signs Vital signs: Temp Pulse Resp BP Pulse Ox 98.2 F 95 16 153/93 H 98 12/07/19 18:57 12/07/19 18:57 12/07/19 18:57 12/07/19 18:57 12/07/19 18:57 Discharge - Discharge Clinical Impression: Rash and nonspecific skin eruption Condition: Stable Disposition: HOME, SELF-CARE Additional Instructions: Keep the skin clean Wash with soap and water Tylenol/ibuprofen if needed Triple antibiotic ointment daily if there is any break in the skin Take medication as directed Monitor for any worsening symptoms Recheck with your PCM in 2-3 days Consider consult with dermatology Return to the ED with any worsening symptoms and/or development of fever, headache, chest pain, palpitations, syncope, shortness of breath, trouble breathing, abdominal pain, n/v/d, abscess, purulent discharge, red streaks, worsening swelling, or other worsening symptoms that are concerning to you. Prescriptions: Prednisone [Deltasone 10 mg Tablet] 10 mg PO ASDIR PRN #21 tablet PRN Reason: Forms: Elevated Blood Pressure, Smoking Cessation Education Referrals: DREW CLARK DO [ACTIVE STAFF] - Follow up as needed
== END 2019-12-07 19:30 | disposition home or self-care (01) ==
LOC: ER 18:54
DX: R21 Rash and other nonspecific skin eruption (principal); L29.9 Pruritus, unspecified; F17.200 Nicotine dependence, unspecified, uncomplicated
CPT/HCPCS: 99282

== ENCOUNTER 2019-12-21 00:59 | Emergency (ER) | payer SELFPAY ==
[2019-12-21] MEDS ORDERED: METOCLOPRAMIDE HCL 10 MG TABLET PO ONE (04:15)
[2019-12-21] MEDS ORDERED: KETOROLAC TROMETHAMINE 60 MG/2 ML SDV IM ONE (04:15)
--- NOTE | 2019-12-21 04:26 | ER Document Report ---
HPI - HPI Time Seen by Provider: 12/21/19 03:14 Pain Level: 1 Context: Patient is a 39-year-old male that comes to the emergency department for chief complaint of a rash over his body. He states this started out over the right side of the abdomen and chest about 2 weeks ago, he states he was seen here and treated with a tapering dose of prednisone, he states that the areas are irritating, now he has it over his abdomen, chest, back, and arms mainly. He has not minimally over the lower extremities. He does not have it on the face, he denies any oral or pharyngeal involvement, he denies any shortness of breath, fever, abdominal pain, chest pain. He denies any obvious exposures. He states that he has scratched open a couple of places but there was no fluid or purulent discharge from the areas. 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 He denies any daily medications, past medical history of kidney stones. He denies recreational drugs or history of MRSA. Past Medical History - General Information source: Patient - Social History Smoking Status: Current Every Day Smoker Frequency of alcohol use: None Drug Abuse: None Lives with: Family Family History: Reviewed & Not Pertinent, DM, Hypertension Patient has suicidal ideation: No Patient has homicidal ideation: No Renal/ Medical History: Reports: Hx Kidney Stones. Denies: Hx Peritoneal Dialysis Past Surgical History: Reports: Hx Orthopedic Surgery - Rt knee - Immunizations Immunizations up to date: Yes Hx Diphtheria, Pertussis, Tetanus Vaccination: Yes Vertical Provider Document - CONSTITUTIONAL General Appearance: WD/WN, No Apparent Distress - INFECTION CONTROL TRAVEL OUTSIDE OF THE [place] IN LAST 30 DAYS: No - HEENT HEENT: Atraumatic, Normal ENT Exam - Patent airway, normal oropharyngeal exam, unremarkable otherwise, Normocephalic - NECK Neck: Normal Inspection - RESPIRATORY Respiratory: Breath Sounds Normal, No Respiratory Distress - CARDIOVASCULAR Cardiovascular: Regular Rate, Regular Rhythm - GI/ABDOMEN Gastrointestinal: Abdomen Soft, Abdomen Non-Tender - MUSCULOSKELETAL/EXTREMETIES Musculoskeletal/Extremeties: MAEW, FROM, Non-Tender - NEURO Level of Consciousness: Awake, Alert, Appropriate - DERM Integumentary: Warm, Dry, Rash - There is a scattered maculopapular rash mainly over the abdomen, chest, and mid to upper back. There is also a component to the anterior arms proximally. This does kylie when pressed on. Patient has excoriations in multiple areas. There is one area that has been excoriated on the left proximal arm anteriorly and also in the mid back which have surrounding erythema and tenderness suggesting developing cellulitis. There is no induration or fluctuance. There are no vesicles, bulla, pustules, streaking areas noted. Course - Re-evaluation Re-evalutation: Based on patient's random distribution on the anterior aspect and also in his upper back along with his recent extensive skin contact with fiberglass I actually suspect this could be caused by the fiberglass. He has 2 areas of developing cellulitis but no evidence of abscess. Negative Nikolsky sign. I do not suspect anaphylaxis based on his evaluation. I do not suspect Singh- Edenilson syndrome or necrotizing fasciitis. Discussed with patient. Patient will be treated with antihistamines, doxycycline, and referred to dermatology. Discussed return precautions. Patient states understanding and agreement with plan. Stable and well-appearing at time of discharge. - Vital Signs Vital signs: Temp Pulse Resp BP Pulse Ox 97.9 F 86 20 125/84 95 12/21/19 01:10 12/21/19 01:10 12/21/19 01:10 12/21/19 01:10 12/21/19 01:10 Discharge - Discharge Clinical Impression: Skin rash Cellulitis Qualifiers: Site of cellulitis: unspecified site Qualified Code(s): L03.90 - Cellulitis, unspecified Condition: Stable Disposition: HOME, SELF-CARE Additional Instructions: There are 2 areas that have been scratched open that are concerning for developing cellulitis (skin infection). Take the doxycycline as prescribed to completion. Your overall evaluation is suspicious for symptoms caused by your large exposure to fiberglass. I recommend that you take the antihistamines as prescribed daily, follow-up with the dermatology referral for additional evaluation and management. Return if you worsen including developing difficulty swallowing or breathing, swelling of the face, fever, spreading redness over your body, or any other concerning or worsening symptoms. Prescriptions: Cetirizine HCl [All Day Allergy] 10 mg PO DAILY #30 tablet Famotidine [Pepcid 20 mg Tablet] 20 mg PO DAILY #12 tablet Doxycycline Hyclate [Vibramycin 100 mg Tablet] 100 mg PO BID 7 Days #14 tablet Referrals: DREW CLARK DO [ACTIVE STAFF] - Follow up in 3-5 days
[2019-12-21 05:01] VITALS: BP 128/83
== END 2019-12-21 05:00 | disposition home or self-care (01) ==
LOC: ER 00:59
DX: L03.90 Cellulitis, unspecified (principal); R21 Rash and other nonspecific skin eruption; M54.6 Pain in thoracic spine; F17.200 Nicotine dependence, unspecified, uncomplicated
CPT/HCPCS: 99282; 96372; J1885

== ENCOUNTER 2020-08-19 00:52 | Emergency (ER) | payer SELFPAY ==
[2020-08-19 01:02] VITALS: BP 170/102
[2020-08-19] MEDS ORDERED: HYDROCODONE/ACETAMINOPHEN 5-325 MG TABLET PO ONE (01:10)
[2020-08-19] MEDS ORDERED: PENICILLIN V POTASSIUM 500 MG TABLET PO ONE (01:10)
[2020-08-19] MEDS ORDERED: BENZONATATE 100 MG CAPSULE PO ONE (01:10)
--- NOTE | 2020-08-19 01:12 | ER Document Report ---
HPI - HPI Time Seen by Provider: 08/19/20 01:03 Pain Level: 4 Notes: Patient presents with R lower dental pain. Reports he just popped an abscess in this area. denies fevers/chills. Pain ongoing x3 days. Has dentist appointment in 4 days. - ROS Systems Reviewed and Negative: Yes All other systems reviewed and negative - CONSTITUTIONAL Constitutional: DENIES: Fever, Chills - EENT Notes: dental pain Past Medical History - General Information source: Patient - Social History Smoking Status: Current Every Day Smoker Frequency of alcohol use: None Drug Abuse: None Family History: Reviewed & Not Pertinent, DM, Hypertension Renal/ Medical History: Reports: Hx Kidney Stones. Denies: Hx Peritoneal Dialysis Past Surgical History: Reports: Hx Orthopedic Surgery - Rt knee - Immunizations Immunizations up to date: Yes Hx Diphtheria, Pertussis, Tetanus Vaccination: Yes Vertical Provider Document - CONSTITUTIONAL Agree With Documented VS: Yes Exam Limitations: No Limitations General Appearance: WD/WN, No Apparent Distress - INFECTION CONTROL TRAVEL OUTSIDE OF THE [place] IN LAST 30 DAYS: No - HEENT HEENT: Atraumatic, Normocephalic Notes: erythema surrounding tooth number 29, no amalia absces, no trismus - NECK Neck: Normal Inspection - RESPIRATORY Respiratory: Breath Sounds Normal - CARDIOVASCULAR Cardiovascular: Regular Rate, Regular Rhythm - BACK Back: Normal Inspection - MUSCULOSKELETAL/EXTREMETIES Musculoskeletal/Extremeties: IVIS DURANT - NEURO Level of Consciousness: Awake, Alert, Appropriate - DERM Integumentary: Warm, Dry Course - Re-evaluation Re-evalutation: Patient medicated for pain, started on antibiotics. Will see dentist this week. - Vital Signs Vital signs: Temp Pulse Resp BP Pulse Ox 97.8 F 69 20 170/102 H 97 08/19/20 01:00 08/19/20 01:00 08/19/20 01:00 08/19/20 01:00 08/19/20 01:00 Discharge - Discharge Clinical Impression: Dental infection Condition: Stable Disposition: HOME, SELF-CARE Additional Instructions: You have been seen for dental pain. It is very important that you follow-up with a dentist for definitive care. Please return if you develop fever greater than 101, swelling in your face, vomiting, difficulty breathing or swallowing, or any other symptoms that are concerning to you. For pain you should take ibuprofen 800 mg every 8 hours as needed. Prescriptions: Penicillin V Potassium [Penicillin Vk 500 mg Tablet] 500 mg PO BID #20 tablet
== END 2020-08-19 01:22 | disposition home or self-care (01) ==
LOC: ER 00:52
DX: K04.7 Periapical abscess without sinus (principal); K08.89 Other specified disorders of teeth and supporting structures; F17.200 Nicotine dependence, unspecified, uncomplicated
CPT/HCPCS: 99283